=== PATIENT | female | born 2000 | race Caucasian/White ===

== ENCOUNTER 2021-10-04 23:07 | Emergency (ER) | payer OTHER, SELFPAY ==
[2021-10-04 23:37] VITALS: BP 125/71; PULSE 88; RESP 18; TEMP 36.3; O2SAT 99; BMI 22.1
[2021-10-05] MEDS: Ondansetron ODT 4 MG TAB.RAPDIS TRANSLINGU (00:03)
[2021-10-05] MEDS: Lidocaine HCl Viscous 2 % 15 ML SOLUTION MUCOUS MEM (00:29)
[2021-10-05] MEDS: PHENobarb/Hyoscy/Atropine/Scop 10 ML ELIXIR PO (00:29)
[2021-10-05] MEDS: Magnesium Hydrox/Alum Hydrox 30 ML ORAL.SUSP PO (00:30)
--- NOTE | 2021-10-05 00:42 | ED_ITS ---
HPI - Nausea/Vomiting/Diarrhea General Chief complaint: Nausea/Vomiting/Diarrhea Stated complaint: Vomiting Time Seen by Provider: 10/04/21 23:55 Source: patient Mode of arrival: ambulatory Limitations: no limitations History of Present Illness HPI Narrative: Patient states yesterday she was drinking alcohol from 16:00 until 23:00 when she woke up at midnight she started vomiting and mild abdominal discomfort. Patient states she drank 1 and 1/2 bottle of Yannick alcohol. Patient states she did not eat any food while drinking. Associated nausea: Yes Related Data Previous Rx's Medication Instructions Recorded famotidine 20 mg tablet (Pepcid) 20 mg PO BID 10 Days #20 tab 10/05/21 Allergies Allergy/AdvReac Type Severity Reaction Status Date / Time No Known Allergies Allergy Verified 10/04/21 23:56 Review of Systems Review of Systems: Yes all other systems are reviewed and are negative Constitutional: Constitutional: Reports as per HPI and Reports no additional constitutional complaints Eyes: Eyes: Reports as per HPI and Reports no additional eye complaints ENT: Reports system reviewed and no additional complaints, except as documented and Reports as per HPI Cardiovascular: Cardiovascular: Reports as per HPI and Reports no additional cardiovascular complaints Respiratory: Respiratory: Reports as per HPI and Reports no additional respiratory complaints Gastrointestinal: Gastrointestinal: Reports as per HPI, Reports no additional gastrointestinal complaints, Reports abdominal pain (epigastric pain) and Reports nausea Musculoskeletal: Musculoskeletal: Reports no additional musculoskeletal complaints and Reports as per HPI Neurologic: Reports system reviewed and no additional complaints, except as documented and Reports as per HPI Psychiatric: Psychiatric: Reports no additional psychiatric complaints and Reports as per HPI FOR[facility]LY [facility], [facility] Past Medical History Medical History (Updated 10/05/21 @ 00:55 by CHANDRA Castañeda) Graves disease Social History Social History Advance Directives: No Patient : No Physical Exam Vital Signs: Vital Signs: Last Vital Signs Temp 97.4 F 10/04/21 23:37 Pulse 88 10/04/21 23:37 Resp 18 10/04/21 23:37 BP 125/71 10/04/21 23:37 Pulse Ox 99 10/04/21 23:37 Body Mass Index 22.1 Const: General: cooperative, healthy appearing, comfortable, no acute distress, well developed, alert, awake and Physically active Orientation/consciousness: patient oriented x3 HENMT: Head: Yes normal to inspection, Yes No palpable skull fracture present, Yes normocephalic, Yes atraumatic and No abrasion Eyes: General: appearance normal, both eyes and all related structures Neck: Neck: Yes normal visual inspection, Yes full ROM, Yes no lymphadenopathy, Yes no meningeal signs, Yes trachea midline, Yes supple and No tender Chest: Chest palpation & inspection: normal inspection of the chest and normal palpation of entire chest wall Resp: Effort & Inspection: normal respiratory effort and able to speak in complete sentences Auscultation: clear to auscultation bilaterally Cardio: Jugular venous distension: no JVD Heart sounds: S1 normal heart sound present and S2 normal heart sound present GI: Inspection: Yes normal to inspection and No abdominal wall ecchymosis Palpation (GI): Soft to palpation, not firm, nontender, no guarding and not rigid : General: No CVA tenderness and Yes no CVA tenderness Back/Spine/Pelvis: Back: no CVA tenderness, No CVA tenderness and No back tenderness Skin: General skin exam: no rashes or lesions noted and elasticity normal Neuro: General: patient oriented x3, gait normal, no meningeal signs and CN's II-XI intact bilaterally Cranial nerves: Yes CN's II-XII intact bilaterally Extrem: General: Yes normal to inspection and Yes full ROM Psych: Appearance: grossly normal, well kempt and not disheveled Course Course Course Narrative: Give Zofran and p.o. challenge. Reevaluation(s) Reevaluation #1: Patient no longer vomiting. After Zofran and GI cocktail patient states she feel better. Patient talking and laughing with female friend. Patient passed p.o. challenge. Diagnosis alcohol gastritis. Patient states no need to give urine for . She states she is a lesbian. Time: 00:51 MDM - Nausea/Vomiting/Diarrhea MDM Narrative Medical decision making narrative: Alcoholic Gastritis Discharge Plan Discharge Clinical Impression: Acute alcoholic gastritis Patient Disposition: Home, Self-Care Instructions: Gastritis (ED) Additional Instructions: Return to the ED immediately for any vomiting blood, abdominal pain, blood in stool, fever, chills, right upper quadrant pain, green emesis, dysuria, hematuria, flank pain, or any other concerning symptoms. Please follow up with PCP Prescriptions: New famotidine [Pepcid] 20 mg tablet 20 mg PO BID 10 Days Qty: 20 RF: 0 Interventions: ED Discharge Assessment Last Done: 10/05/21 01:04 Discharge Date/Time: 10/05/21 01:08 EST Print Language: Mohawk
--- NOTE | 2021-10-05 01:08 | PC.NURSE ---
PT HAS NOT VOMITED SINCE ZOFRAN GIVEN AND GI COCKTAIL GIVEN PT STATES SHE FEEL BETTER.
== END 2021-10-05 01:08 | disposition home or self-care (01) ==
PROVIDERS: Emergency Provider Internal Medicine
DX: K29.20 Alcoholic gastritis without bleeding (principal); R11.2 Nausea with vomiting, unspecified; Z79.899 Other long term (current) drug therapy
CPT/HCPCS: 99283

== ENCOUNTER 2021-12-18 12:14 | Outpatient (REF) | payer OTHER, SELFPAY ==
[2021-12-18 12:27] LABS: COVID-19 Test Positive (Negative)
== END 2021-12-18 12:15 | disposition home or self-care (01) ==
LOC: HO.LAB 12:14
PROVIDERS: Visit Provider Internal Medicine
DX: Z20.822 Contact with and (suspected) exposure to COVID-19 (principal)
CPT/HCPCS: 87635; C9803

== ENCOUNTER 2022-06-09 00:18 | Emergency (ER) | payer OTHER, SELFPAY ==
[2022-06-09 00:24] VITALS: BP 110/70; PULSE 90; O2SAT 99
[2022-06-09 00:49] VITALS: BP 116/77; PULSE 58; RESP 18; TEMP 37; O2SAT 97; BMI 23.0
[2022-06-09 00:59] LABS: Basophils Percent Auto 0.3 % (0-2); Eosinophils Absolute Auto 0.1 X10*3/uL (0.0-0.4); Eosinophils Percent Auto 0.4 % (0-4); Hematocrit 42.8 % (37.0-47.0); Hemoglobin 14.2 g/dl (12.0-16.0); Imm Gran Abs Auto 0.06 X10*3/uL (0.00-0.03); Imm Gran Pct Auto 0.4 % (0.0-0.4); Lymphocytes Absolute Auto 0.8 X10*3/uL (1.2-4.9); Lymphocytes Percent Auto 5.1 % (20-40); MANUAL DIFF FLAG NO; Mean Corpuscular HGB Conc 33.2 g/dl (31.0-35.0); Mean Corpuscular Hemoglobin 32.8 pg (27.0-33.0); Mean Corpuscular Volume 98.8 fL (80.0-98.0); Mean Platelet Volume 9.5 fL (9.4-12.3); Monocytes Absolute Auto 0.8 X10*3/uL (0.1-1.2); Monocytes Percent Auto 5.1 % (2-11); Neutrophils Absolute Auto 13.5 x10*3/uL (2.0-8.3); Neutrophils Percent Auto 88.7 % (45-73); Platelet Count 208 X10*3/uL (160-400); Red Blood Count 4.33 X10*6/uL (4.20-5.50); Red Cell Distribution Width 13.3 % (11.0-16.0); White Blood Count 15.3 X10*3/uL (4.8-10.8)
[2022-06-09 06:03] LABS: Alanine Aminotransferase 46 U/L (0-31); Alkaline Phosphatase 58 U/L (39-117); Anion Gap 15 (12-20); Aspartate Amino Transferase 40 U/L (5-31); Bilirubin Direct 0.4 mg/dL (0.0-0.5); Blood Urea Nitrogen 18 mg/dL (9-16); Calcium 9.2 mg/dL (8.4-10.2); Carbon Dioxide 22 mmol/L (22-29); Chloride 103 mmol/L (96-108); Creatinine Clr Calc Pharmacy 85.6; Estimated Glomerular Filt Rate > 60; Glucose Random 104 mg/dL (60-115); Lipase 16 U/L (8-78); Sodium 136 mmol/L (135-145); Total Protein 8.4 g/dL (6.5-8.0)
[2022-06-09 06:17] VITALS: BP 127/74; PULSE 98; RESP 16; O2SAT 99
--- NOTE | 2022-06-09 06:27 | ED.NAVMDI ---
HPI - Nausea/Vomiting/Diarrhea General Chief complaint: Nausea/Vomiting/Diarrhea Stated complaint: SUDDEN ONSET NAUSEA/VOMITING PER EMS Time Seen by Provider: 06/09/22 06:27 Source: patient Mode of arrival: ambulatory Limitations: no limitations History of Present Illness HPI Narrative: Patient with Nausea and vomiting for the past 6 hours. Patient denied food poisoning. MD elicited complaint: nausea, vomiting and diarrhea Onset (ago): hour(s) Associated nausea: Yes Associated abdominal pain: Yes Location of pain: none Severity: mild Quality: cramping Associated symptoms: fever/chills Treatment prior to arrival: none Related Data Previous Rx's Medication Instructions Recorded famotidine 20 mg tablet (Pepcid) 20 mg PO BID 10 days #20 tabs 10/05/21 ondansetron 4 mg disintegrating 4 mg PO Q8H 4 days #12 tabs 06/09/22 tablet Allergies Allergy/AdvReac Type Severity Reaction Status Date / Time No Known Allergies Allergy Verified 10/04/21 23:56 Review of Systems Constitutional: Constitutional: Reports no additional constitutional complaints Eyes: Eyes: Reports no additional eye complaints ENT: Denies dizziness Cardiovascular: Cardiovascular: Reports no additional cardiovascular complaints Respiratory: Respiratory: Reports as per HPI Gastrointestinal: Gastrointestinal: Reports nausea Genitourinary: Genitourinary: Reports no additional female genitourinary complaints Musculoskeletal: Musculoskeletal: Reports no additional musculoskeletal complaints Integumentary/Breasts: Skin/Breast: Denies rash Neurologic: Reports system reviewed and no additional complaints, except as documented, Denies dizziness and Denies Sensory deficit (Neuro) Psychiatric: Psychiatric: Denies anxiety [facility] Past Medical History Medical History Graves disease Social History Social History Advance Directives: No Advance Directives Information Provided: Yes Physical Exam Vital Signs: Vital Signs: Last Vital Signs Temp 98.6 F 06/09/22 00:49 Pulse 87 06/09/22 08:22 Resp 16 06/09/22 08:22 BP 119/77 06/09/22 08:22 Pulse Ox 99 06/09/22 08:22 O2 Del Method 06/09/22 08:22 BMI result Body Mass Index 23.0 Const: General: healthy appearing Nutritional Appearance: average body habitus Orientation/consciousness: oriented to person and patient oriented x3 Limitations: no limitations HEENT: Head: Yes normal to inspection Ears: external ears normal General nose exam: Normal external nose present Mouth: Normal oral and palatal mucosa present and oropharynx normal Throat: Yes posterior oropharynx normal Eyes: General: appearance normal, both eyes and all related structures Neck: Other: supple Neck: Yes normal visual inspection Chest: Chest palpation & inspection: normal inspection of the chest Resp: Auscultation: clear to auscultation bilaterally Cardio: Jugular venous distension: no JVD Rate: regular rate Rhythm: regular rhythm Heart sounds: S1 normal heart sound present and S2 normal heart sound present GI: Inspection: Yes normal to inspection Palpation (GI): Soft to palpation, nontender and No hepatosplenomegaly present Auscultation: normal bowel sounds : General: Yes no CVA tenderness Back/Spine/Pelvis: Back: no CVA tenderness Skin: General skin exam: no rashes or lesions noted Neuro: General: oriented to person and patient oriented x3 Cranial nerves: Yes CN's II-XII intact bilaterally Motor exam (neuro): 5/5 motor strength present throughout Sensory Exam: No Sensory deficit (Neuro) Extrem: General: Yes normal to inspection Psych: Appearance: grossly normal Course Reevaluation(s) Reevaluation #1: patient looking well, abdomen soft will dc on zofran Time: 08:56 MDM - Nausea/Vomiting/Diarrhea Lab Data Result diagrams: 06/09/22 00:53 06/09/22 05:35 Labs: Lab Results 06/09/22 06/09/22 Range/Units 00:53 05:35 WBC 15.3 H (4.8-10.8) X10*3/uL RBC 4.33 (4.20-5.50) X10*6/uL Hgb 14.2 (12.0-16.0) g/dl Hct 42.8 (37.0-47.0) % MCV 98.8 H (80.0-98.0) fL MCH 32.8 (27.0-33.0) pg MCHC 33.2 (31.0-35.0) g/dl RDW 13.3 (11.0-16.0) % Plt Count 208 (160-400) X10*3/uL MPV 9.5 (9.4-12.3) fL Immature Gran % (Auto) 0.4 (0.0-0.4) % Neut % (Auto) 88.7 H (45-73) % Lymph % (Auto) 5.1 L (20-40) % Maverick % (Auto) 5.1 (2-11) % Eos % (Auto) 0.4 (0-4) % Baso % (Auto) 0.3 (0-2) % Lymph # (Auto) 0.8 L (1.2-4.9) X10*3/uL [place]ick # (Auto) 0.8 (0.1-1.2) X10*3/uL Eos # (Auto) 0.1 (0.0-0.4) X10*3/uL Baso # (Auto) 0.0 (0.0-0.2) X10*3/uL Abs Immat Gran (auto) 0.06 H (0.00-0.03) X10*3/uL Absolute Neuts (auto) 13.5 H (2.0-8.3) x10*3/uL Absolute Nucleated RBC 0.000 (0.0-0.012) X10*3/uL Nucleated RBC % (auto) 0.0 (0.0-0.2) /100WBC Sodium 136 (135-145) mmol/L Potassium 4.0 (3.3-5.1) mmol/L Chloride 103 (96-108) mmol/L Carbon Dioxide 22 (22-29) mmol/L Anion Gap 15 (12-20) BUN 18 H (9-16) mg/dL Creatinine 0.86 (0.5-1.4) mg/dL Estim Creat Clear Calc 85.6 Estimated GFR > 60 Random Glucose 104 (60-115) mg/dL Calcium 9.2 (8.4-10.2) mg/dL Total Bilirubin 1.0 (0.0-1.0) mg/dL Direct Bilirubin 0.4 (0.0-0.5) mg/dL AST 40 H (5-31) U/L ALT 46 H (0-31) U/L Alkaline Phosphatase 58 (39-117) U/L Total Protein 8.4 H (6.5-8.0) g/dL Albumin 5.0 (3.5-5.0) g/dL Lipase 16 (8-78) U/L Discharge Plan Discharge Clinical Impression: Gastroenteritis Patient Disposition: Home, Self-Care Instructions: Acute Nausea and Vomiting (ED) Prescriptions: New ondansetron 4 mg tablet,disintegrating 4 mg PO Q8H 4 Days Qty: 12 0RF No Action famotidine [Pepcid] 20 mg tablet 20 mg PO BID 10 Days Qty: 20 0RF Referrals: Santa Iqbal PA-C [Primary Care Provider] - 1 week
[2022-06-09] MEDS: ondansetron HCL 4 MG/2 ML VIAL IVPUSH (06:32)
[2022-06-09] MEDS: 0.9 % Sodium Chloride 1,000 ML 999 ML IVCONT (06:33)
[2022-06-09 08:22] VITALS: BP 119/77; PULSE 87; RESP 16; O2SAT 99
[2022-06-09 09:41] VITALS: BP 125/66; PULSE 95; RESP 18; TEMP 37; O2SAT 98
== END 2022-06-09 09:52 | disposition home or self-care (01) ==
PROVIDERS: Emergency Provider Emergency Medicine; PCP Physician Assistant
DX: K52.9 Noninfective gastroenteritis and colitis, unspecified (principal); R11.2 Nausea with vomiting, unspecified; R50.9 Fever, unspecified; Z20.822 Contact with and (suspected) exposure to COVID-19; Z79.899 Other long term (current) drug therapy
CPT/HCPCS: 36415; 80053; 82248; 83690; 85025; 96361; 96374; 99284; J2405

== ENCOUNTER 2022-06-10 11:45 | Emergency (ER) | payer OTHER, SELFPAY ==
--- NOTE | 2022-06-10 | ECG_ITS ---
Test Reason : cp Blood Pressure : / mmHG Vent. Rate : 092 BPM Atrial Rate : 092 BPM P-R Int : 174 ms QRS Dur : 078 ms QT Int : 356 ms P-R-T Axes : 041 048 013 degrees QTc Int : 440 ms Normal sinus rhythm Normal ECG When compared with ECG of 24-JUN-2019 21:24, Nonspecific T wave abnormality no longer evident in Anterior leads Referred By: Generic ED Physician Electronically Signed By:CRISTOPHER GANNON MD
--- NOTE | ~2022-06-10 | XR_ITS ---
EXAMINATION: XR CHEST CLINICAL INFORMATION: Chest pain COMPARISON: Chest x-ray 11/25/2017 TECHNIQUE: Frontal view of the chest was obtained. FINDINGS: The lungs are clear. No airspace consolidation, pleural effusion, or pneumothorax. The cardiomediastinal silhouette is within normal limits. No acute osseous injury. XR/XR chest 1V IMPRESSION: No acute pulmonary process.
[2022-06-10 11:53] VITALS: BP 138/61; PULSE 88; RESP 16; TEMP 36.1; O2SAT 99; BMI 23.9
[2022-06-10 14:44] LABS: MANUAL DIFF FLAG NO
[2022-06-10 14:45] LABS: Basophils Percent Auto 0.1 % (0-2); Eosinophils Absolute Auto 0.1 X10*3/uL (0.0-0.4); Eosinophils Percent Auto 1.3 % (0-4); Hematocrit 40.1 % (37.0-47.0); Hemoglobin 13.6 g/dl (12.0-16.0); Imm Gran Abs Auto 0.02 X10*3/uL (0.00-0.03); Imm Gran Pct Auto 0.3 % (0.0-0.4); Lymphocytes Absolute Auto 1.5 X10*3/uL (1.2-4.9); Lymphocytes Percent Auto 21.6 % (20-40); Mean Corpuscular HGB Conc 33.9 g/dl (31.0-35.0); Mean Corpuscular Hemoglobin 32.5 pg (27.0-33.0); Mean Corpuscular Volume 95.7 fL (80.0-98.0); Mean Platelet Volume 9.1 fL (9.4-12.3); Monocytes Absolute Auto 0.5 X10*3/uL (0.1-1.2); Monocytes Percent Auto 6.5 % (2-11); Neutrophils Absolute Auto 4.9 x10*3/uL (2.0-8.3); Neutrophils Percent Auto 70.2 % (45-73); Platelet Count 214 X10*3/uL (160-400); Red Blood Count 4.19 X10*6/uL (4.20-5.50); Red Cell Distribution Width 13.5 % (11.0-16.0)
[2022-06-10 15:07] LABS: Alanine Aminotransferase 32 U/L (0-31); Albumin Level 4.7 g/dL (3.5-5.0); Alkaline Phosphatase 54 U/L (39-117); Anion Gap 12 (12-20); Aspartate Amino Transferase 34 U/L (5-31); Bilirubin Direct 0.2 mg/dL (0.0-0.5); Bilirubin Total 0.4 mg/dL (0.0-1.0); Blood Urea Nitrogen 7 mg/dL (9-16); Calcium 8.4 mg/dL (8.4-10.2); Carbon Dioxide 26 mmol/L (22-29); Chloride 104 mmol/L (96-108); Creatinine Clr Calc Pharmacy 85.6; Estimated Glomerular Filt Rate > 60; Glucose Random 88 mg/dL (60-115); Lipase 12 U/L (8-78); Potassium 3.9 mmol/L (3.3-5.1); Sodium 138 mmol/L (135-145)
[2022-06-10 15:10] LABS: HCG Quantitative < 2 mIU/mL
[2022-06-10 16:37] VITALS: BP 125/89; PULSE 94; RESP 16; TEMP 36.6; O2SAT 99
--- NOTE | 2022-06-10 16:43 | ED.GENADULT ---
HPI - General Adult General Chief complaint: General Medical Stated complaint: Chest pain Time Seen by Provider: 06/10/22 13:58 Source: patient Mode of arrival: ambulatory History of Present Illness HPI narrative: 22-year-old female without significant past medical history presents with left anterior chest wall pain that started last night approximately 17:00 and she states it was preceded by multiple episodes of nausea and vomiting for which she was seen here yesterday. Patient states that the pain radiates into her back and is associated with nausea, sweating, dizziness when she coughs. Patient is a nonsmoker denies OCP recent travel. Reproducible pain on palpation over left chest wall Related Data Previous Rx's Medication Instructions Recorded famotidine 20 mg tablet (Pepcid) 20 mg PO BID 10 days #20 tabs 10/05/21 ondansetron 4 mg disintegrating 4 mg PO Q8H 4 days #12 tabs 06/09/22 tablet Allergies Allergy/AdvReac Type Severity Reaction Status Date / Time No Known Allergies Allergy Verified 10/04/21 23:56 Review of Systems Review of Systems: Pertinent positives and negatives as stated in HPI and 10 point review of systems is otherwise negative. PMFSH Past Medical History Source: nursing notes reviewed Medical History Graves disease Social History Social History Alcohol intake: current Patient Tobacco Use Status: Current someday Tobacco user Substance Use Type: Marijuana Advance Directives: No Advance Directives Information Provided: Yes Patient : No Physical Exam ED Vital Signs: Vital Signs - 24 hr 06/10/22 11:53 06/10/22 16:37 Temperature 97 F 97.9 F Pulse Rate 88 94 Respiratory Rate 16 16 Blood Pressure 138/61 125/89 Pulse Oximetry 99 99 Oxygen Delivery Method Room Air Room Air BMI result Body Mass Index 23.9 VITAL SIGNS: Reviewed. GENERAL: Well developed, well nourished, in no acute distress. HEAD: Normocephalic/atraumatic EYES: PERRLA, EOMI EARS: Ext canals without abnormality OROPHARYNX: no oral lesions noted, posterior pharynx clear LUNGS: Normal breath sounds. No adventitious sounds or accessory muscle use. SpO2<99>; CHEST WALL: Reproducible chest wall pain on palpation over left superior anterior chest wall without crepitus or deformity noted. CARDIOVASCULAR: Regular rate and rhythm without noted murmurs ABDOMEN: Soft, non-tender, non-distended with bowel sounds. NEUROLOGIC: Alert and oriented x 4. Strength and sensation to light touch were grossly intact x 4. Course Course Course Narrative: 22-year-old female with history and clinical presentation consistent with anterior chest wall muscle strain, costochondritis and doubt significant cardiopulmonary etiologies and patient is PERC negative. Review of all investigations are otherwise negative for acute findings and on re-evaluation patient reports improvement with the combination analgesics and lidocaine patch. She was otherwise discharged home in stable condition. Medical Decision Making Lab Data Result diagrams: 06/10/22 14:40 06/10/22 14:40 Labs: Lab Results 06/10/22 06/10/22 06/10/22 Range/Units 14:40 14:40 14:40 WBC 7.0 (4.8-10.8) X10*3/uL RBC 4.19 L (4.20-5.50) X10*6/uL Hgb 13.6 (12.0-16.0) g/dl Hct 40.1 (37.0-47.0) % MCV 95.7 (80.0-98.0) fL MCH 32.5 (27.0-33.0) pg MCHC 33.9 (31.0-35.0) g/dl RDW 13.5 (11.0-16.0) % Plt Count 214 (160-400) X10*3/uL MPV 9.1 L (9.4-12.3) fL Immature Gran % (Auto) 0.3 (0.0-0.4) % Neut % (Auto) 70.2 (45-73) % Lymph % (Auto) 21.6 (20-40) % [place] % (Auto) 6.5 (2-11) % Eos % (Auto) 1.3 (0-4) % Baso % (Auto) 0.1 (0-2) % Lymph # (Auto) 1.5 (1.2-4.9) X10*3/uL [place] # (Auto) 0.5 (0.1-1.2) X10*3/uL Eos # (Auto) 0.1 (0.0-0.4) X10*3/uL Baso # (Auto) 0.0 (0.0-0.2) X10*3/uL Abs Immat Gran (auto) 0.02 (0.00-0.03) X10*3/uL Absolute Neuts (auto) 4.9 (2.0-8.3) x10*3/uL Absolute Nucleated RBC 0.000 (0.0-0.012) X10*3/uL Nucleated RBC % (auto) 0.0 (0.0-0.2) /100WBC Sodium 138 (135-145) mmol/L Potassium 3.9 (3.3-5.1) mmol/L Chloride 104 (96-108) mmol/L Carbon Dioxide 26 (22-29) mmol/L Anion Gap 12 (12-20) BUN 7 L D (9-16) mg/dL Creatinine 0.86 (0.5-1.4) mg/dL Estim Creat Clear Calc 85.6 Estimated GFR > 60 Random Glucose 88 (60-115) mg/dL Calcium 8.4 D (8.4-10.2) mg/dL Total Bilirubin 0.4 (0.0-1.0) mg/dL Direct Bilirubin 0.2 (0.0-0.5) mg/dL AST 34 H (5-31) U/L ALT 32 H (0-31) U/L Alkaline Phosphatase 54 (39-117) U/L Troponin I High Sens (<3.5-17.0) ng/L Total Protein 8.0 (6.5-8.0) g/dL Albumin 4.7 (3.5-5.0) g/dL Lipase 12 (8-78) U/L Beta HCG, Quant < 2 mIU/mL COVID-19 ([facility]IZABETH) (Negative) COVID-19 Clin Com 06/10/22 06/10/22 Range/Units 14:40 17:03 WBC (4.8-10.8) X10*3/uL RBC (4.20-5.50) X10*6/uL Hgb (12.0-16.0) g/dl Hct (37.0-47.0) % MCV (80.0-98.0) fL MCH (27.0-33.0) pg MCHC (31.0-35.0) g/dl RDW (11.0-16.0) % Plt Count (160-400) X10*3/uL MPV (9.4-12.3) fL Immature Gran % (Auto) (0.0-0.4) % Neut % (Auto) (45-73) % Lymph % (Auto) (20-40) % [place] % (Auto) (2-11) % Eos % (Auto) (0-4) % Baso % (Auto) (0-2) % Lymph # (Auto) (1.2-4.9) X10*3/uL [place] # (Auto) (0.1-1.2) X10*3/uL Eos # (Auto) (0.0-0.4) X10*3/uL Baso # (Auto) (0.0-0.2) X10*3/uL Abs Immat Gran (auto) (0.00-0.03) X10*3/uL Absolute Neuts (auto) (2.0-8.3) x10*3/uL Absolute Nucleated RBC (0.0-0.012) X10*3/uL Nucleated RBC % (auto) (0.0-0.2) /100WBC Sodium (135-145) mmol/L Potassium (3.3-5.1) mmol/L Chloride (96-108) mmol/L Carbon Dioxide (22-29) mmol/L Anion Gap (12-20) BUN (9-16) mg/dL Creatinine (0.5-1.4) mg/dL Estim Creat Clear Calc Estimated GFR Random Glucose (60-115) mg/dL Calcium (8.4-10.2) mg/dL Total Bilirubin (0.0-1.0) mg/dL Direct Bilirubin (0.0-0.5) mg/dL AST (5-31) U/L ALT (0-31) U/L Alkaline Phosphatase (39-117) U/L Troponin I High Sens < 3.5 (<3.5-17.0) ng/L Total Protein (6.5-8.0) g/dL Albumin (3.5-5.0) g/dL Lipase (8-78) U/L Beta HCG, Quant mIU/mL COVID-19 ([facility]ABETH) Negative (Negative) COVID-19 Clin Com See Note ECG Data Attestation: I personally reviewed and interpreted this ECG as follows: Prior ECG tracings: available for review Interpretation: Normal sinus rhythm, HR-92, no STEMI, AR/QRS/QTC are within normal limits. Discharge Plan Discharge Clinical Impression: Anterior chest wall pain, Atypical chest pain, Muscle strain of chest wall Patient Disposition: Home, Self-Care Instructions: Chest Wall Pain (ED), Muscle Strain (ED) Additional Instructions: 1. Tylenol 1000 mg, orally, every 6 hours as needed for pain control. Do not exceed 4000 mg within 24 hours. 2. Ibuprofen 400 mg, orally with milk or food, every 6 hours as needed for pain control. You can take this with the Tylenol for improved symptom relief. 3. Lidocaine patch, apply to area of maximal tenderness as directed on the outside packaging. 4. Follow-up with your primary care provider next 2-3 days for re-evaluation. Return to the ER for worsening symptoms. Prescriptions: No Action famotidine [Pepcid] 20 mg tablet 20 mg PO BID 10 Days Qty: 20 0RF ondansetron 4 mg tablet,disintegrating 4 mg PO Q8H 4 Days Qty: 12 0RF
[2022-06-10] MEDS: Acetaminophen 325 MG TABLET 975 MG PO (17:06)
[2022-06-10] MEDS: Ketorolac Tromethamine 15 MG/ML VIAL IM (17:06)
[2022-06-10] MEDS: Lidocaine 4 % Patch ADH..PATCH 1 PATCH TRANSDERMA (17:09)
[2022-06-10 17:40] LABS: COVID-19 Test Negative (Negative)
[2022-06-10 18:11] LABS: Troponin-I High Sensitivity < 3.5 ng/L (<3.5-17.0)
== END 2022-06-10 18:36 | disposition home or self-care (01) ==
PROVIDERS: Emergency Medicine; Emergency Provider Student in an Organized Health Care Education/Training Program
DX: R07.89 Other chest pain (principal); S29.011A Strain of muscle and tendon of front wall of thorax, initial encounter; X58.XXXA Exposure to other specified factors, initial encounter; F17.200 Nicotine dependence, unspecified, uncomplicated; F12.90 Cannabis use, unspecified, uncomplicated; Z20.822 Contact with and (suspected) exposure to COVID-19; Y93.9 Activity, unspecified; Y92.032 Bedroom in apartment as the place of occurrence of the external cause; Y99.9 Unspecified external cause status
CPT/HCPCS: 36415; 71045; 80048; 80076; 83690; 84484; 84702; 85025; 87635; 93005; 96372; 99284; J1885

== ENCOUNTER 2022-10-18 18:04 | Emergency (ER) | payer OTHER, SELFPAY ==
--- NOTE | ~2022-10-18 | CT_ITS ---
EXAMINATION: NONCONTRAST HEAD CT NONCONTRAST CERVICAL SPINE CT INDICATION INFORMATION: Fall at work with head strike COMPARISON: Head CT 06/24/2019 TECHNIQUE: Separate noncontrast CT examinations of the head and cervical spine were performed. Coronal and sagittal images were created for each examination at the technologist workstation. This CT examination was performed using dose optimization techniques as appropriate, variously including the following: *Automated exposure control *Adjustment of mA and/or kV according to patient size (this includes techniques or standardized protocols for targeted exams where dose is matched to indication/reason for exam; i.e. extremities or head) *Use of iterative reconstruction technique DLP: 1039 mGy-cm FINDINGS: HEAD: No intra or extra-axial fluid collection, hemorrhage, or mass. No ventriculomegaly. No midline shift or herniation. Basal cisterns are patent. Bee-white matter differentiation is maintained. No territorial encephalomalacia. No significant volume loss. There is no abnormal attenuation within the brain parenchyma. No calvarial fracture or soft tissue abnormality. The mastoid air cells and visualized portions of the paranasal sinuses are well aerated. CERVICAL SPINE: Alignment: Normal. No subluxation. Vertebra: No acute fracture. No prevertebral soft tissue swelling. Degenerative disc disease: No significant. Preserved intervertebral disc heights. Other findings: Visualized lung apices are clear. Status post thyroidectomy with numerous surgical clips in place. No cervical lymphadenopathy by size criteria. A few punctate calcifications in the parotid glands noted bilaterally. CT/CT head/brain wo IV con IMPRESSION: 1. No intracranial hemorrhage or calvarial fracture. 2. No traumatic subluxation or acute cervical spine fracture.
--- NOTE | ~2022-10-18 | XR_ITS ---
EXAMINATION: XR lumbar spine 2-3V, XR thoracic spine 3V CLINICAL INFORMATION: Reason for Exam pain s/p fall COMPARISON: None. TECHNIQUE: AP, lateral, swimmer's lateral thoracic spine; 3 views lumbosacral spine FINDINGS: Thoracic spine: Normal alignment of the thoracic spine. Vertebral body heights are maintained. No fracture. Intervertebral disc space heights are preserved. No osseous lesion identified. Visualized portion of lungs are grossly clear. Surgical clips project over the lower neck. Correlate with prior thyroidectomy or other surgery. Lumbar spine: Normal alignment of the lumbar spine. Vertebral body heights are maintained. No fracture. Intervertebral disc space heights are preserved. No pars defects. No osseous lesion. SI joints appear congruent and intact. XR/XR lumbar spine 2-3V IMPRESSION: 1. No subluxation or fracture identified in the thoracic or lumbar spine. 2. Preserved intervertebral disc space heights.
--- NOTE | ~2022-10-18 | CT_ITS ---
EXAMINATION: NONCONTRAST HEAD CT NONCONTRAST CERVICAL SPINE CT INDICATION INFORMATION: Fall at work with head strike COMPARISON: Head CT 06/24/2019 TECHNIQUE: Separate noncontrast CT examinations of the head and cervical spine were performed. Coronal and sagittal images were created for each examination at the technologist workstation. This CT examination was performed using dose optimization techniques as appropriate, variously including the following: *Automated exposure control *Adjustment of mA and/or kV according to patient size (this includes techniques or standardized protocols for targeted exams where dose is matched to indication/reason for exam; i.e. extremities or head) *Use of iterative reconstruction technique DLP: 1039 mGy-cm FINDINGS: HEAD: No intra or extra-axial fluid collection, hemorrhage, or mass. No ventriculomegaly. No midline shift or herniation. Basal cisterns are patent. Bee-white matter differentiation is maintained. No territorial encephalomalacia. No significant volume loss. There is no abnormal attenuation within the brain parenchyma. No calvarial fracture or soft tissue abnormality. The mastoid air cells and visualized portions of the paranasal sinuses are well aerated. CERVICAL SPINE: Alignment: Normal. No subluxation. Vertebra: No acute fracture. No prevertebral soft tissue swelling. Degenerative disc disease: No significant. Preserved intervertebral disc heights. Other findings: Visualized lung apices are clear. Status post thyroidectomy with numerous surgical clips in place. No cervical lymphadenopathy by size criteria. A few punctate calcifications in the parotid glands noted bilaterally. CT/CT cervical spine wo IV con IMPRESSION: 1. No intracranial hemorrhage or calvarial fracture. 2. No traumatic subluxation or acute cervical spine fracture.
--- NOTE | ~2022-10-18 | XR_ITS ---
EXAMINATION: XR lumbar spine 2-3V, XR thoracic spine 3V CLINICAL INFORMATION: Reason for Exam pain s/p fall COMPARISON: None. TECHNIQUE: AP, lateral, swimmer's lateral thoracic spine; 3 views lumbosacral spine FINDINGS: Thoracic spine: Normal alignment of the thoracic spine. Vertebral body heights are maintained. No fracture. Intervertebral disc space heights are preserved. No osseous lesion identified. Visualized portion of lungs are grossly clear. Surgical clips project over the lower neck. Correlate with prior thyroidectomy or other surgery. Lumbar spine: Normal alignment of the lumbar spine. Vertebral body heights are maintained. No fracture. Intervertebral disc space heights are preserved. No pars defects. No osseous lesion. SI joints appear congruent and intact. XR/XR thoracic spine 3V IMPRESSION: 1. No subluxation or fracture identified in the thoracic or lumbar spine. 2. Preserved intervertebral disc space heights.
[2022-10-18 18:18] VITALS: BP 129/77; PULSE 87; RESP 18; TEMP 36.7; O2SAT 99; BMI 23.9
[2022-10-18 18:45] LABS: UPreg QC Valid YES; Urine Pregnancy NEGATIVE (NEGATIVE)
--- OUTSIDE RECORDS SUMMARY | 2022-10-18 19:07 | XMS_ITS | Continuity of Care Document ---
:2001 Author Organization [facility] Address [address] [place] [id number]- Care Team Providers Name Role Phone Evelyn Chun DO Primary Care Physician Encounter [facility] Date(s): 12/31/21 - 01/30/22 [facility] [address] [place] [id number]- Attending Physician: Jamal Torres Admitting Physician: Jamal Torres Referring Physician: AdmtrJamal Allergies, Adverse Reactions, Alerts No Known Allergies Medications levothyroxine 175 mcg (0.175 mg) oral tablet 1 tablet, By Mouth, Daily, # 30 tablet, 0 Refills, Maintenance, 12/26/21 15:39:00 EST, [facility]/pharmacy #[id number] Start Date: 12/26/21 Status: Ordered Problem List Condition Effective Dates Status Health Status Informant Acquired hypothyroidism(Confirmed) Active Graves' disease(Confirmed) Active Impaired fasting glucose(Confirmed) Active Social History Social History Type Response Smoking Status Never smoker entered on: 01/13/18 Sex
--- OUTSIDE RECORDS SUMMARY | 2022-10-18 19:07 | XMS_ITS | Continuity of Care Document ---
:2001 Author Organization [facility] Address [address] [place] [address]- Care Team Providers Name Role Phone Evelyn Chun DO Primary Care Physician [place] [facility] [place] 01/02/21 - 02/26/21 [facility] [address] [place] [id number]- Attending Physician: Rebecca Reese MD Admitting Physician: Rebecca Reese MD Allergies, Adverse Reactions, Alerts Substance Reaction Severity Status NKA Active Medications levothyroxine 175 mcg (0.175 mg) oral tablet 1 tablet, By Mouth, Daily, # 30 tablet, 10 Refills, Maintenance, 12/26/20 14:48:00 EST, [id number], 159, cm, 05/10/19 11:27:00 EDT, Height, 54.5, kg, 05/10/19 11:27:00 EDT, Dry Weight Start Date: 12/26/20 Status: Ordered Problem List Condition Effective Dates Status Health Status Informant Acquired hypothyroidism(Confirmed) Active Graves' disease(Confirmed) Active Impaired fasting glucose(Confirmed) Active Social History Social History Type Response Smoking Status Never smoker entered on: 01/13/18 Sex
--- OUTSIDE RECORDS SUMMARY | 2022-10-18 19:07 | XMS_ITS | Continuity of Care Document ---
:2001 Author Organization [facility] Address [address] [place] [address]- Care Team Providers Name Role Phone Evelyn Chun DO Primary Care Physician [place] [facility] [place] 02[place]03[place]21 - 03/05/21 [facility] [address] [place] [id number]- Attending Physician: Jamal Torres Admitting Physician: Jamal Torres Referring Physician: AdmtrJamal Allergies, Adverse Reactions, Alerts Substance Reaction Severity [...]
--- OUTSIDE RECORDS SUMMARY | 2022-10-18 19:07 | XMS_ITS | Continuity of Care Document ---
:2001 Author Organization [facility] Address [address] [place] [address]- Care Team Providers Name Role Phone Evelyn Chun DO Primary Care Physician [place] [facility] [place]20 [facility] [address] [place] [id number]- [facility] Attending Physician: France Grant DO Allergies, Adverse Reactions, Alerts Substance Reaction Severity Status NKA Active Medications levothyroxine 175 mcg (0.175 mg) oral tablet 1 tablet = 175 mcg, By Mouth, Daily, # 30 tablet, 0 Refills, Maintenance, 05/14/20 13:09:00 EDT, Tablet, [id number], 159, cm, 05/10/19 11:27:00 EDT, Height, 54.5, kg, 05/10/19 11:27:00 EDT, DryWeight Start Date: 05/14/20 Stop Date: 06/13/20 Status: Ordered Problem List Condition Effective Dates Status Health Status Informant Acquired hypothyroidism(Confirmed) Active Graves' disease(Confirmed) Active Impaired fasting glucose(Confirmed) Active Social History Social History Type Response Smoking Status Never smoker entered on: 01/13/18 Sex
--- OUTSIDE RECORDS SUMMARY | 2022-10-18 19:07 | XMS_ITS | Continuity of Care Document ---
:2001 Author Organization [facility] Address [address] [place] [address]- Care Team Providers Name Role Phone Evelyn Chun DO Primary Care Physician [phone] [place] [facility] [place] 09/06/20 [facility] [address] [place] [phone]- [facility] Attending Physician: Rebecca Reese MD Allergies, Adverse Reactions, Alerts Substance Reaction Severity Status NKA Active Medications levothyroxine 175 mcg (0.175 mg) oral tablet 1 tablet, By Mouth, Daily, # 30 tablet, 0 Refills, Maintenance, 08/20/20 10:04:00 EDT, [id number], 159, cm, 05/10/19 11:27:00 EDT, Height, 54.5, kg, 05/10/19 11:27:00 EDT, Dry Weight Start Date: 08/20/20 Status: Ordered Problem List Condition Effective Dates Status Health Status Informant Acquired hypothyroidism(Confirmed) Active Graves' disease(Confirmed) Active Impaired fasting glucose(Confirmed) Active Social History Social History Type Response Smoking Status Never smoker entered on: 01/13/18 Sex
--- OUTSIDE RECORDS SUMMARY | 2022-10-18 19:08 | XMS_ITS | Continuity of Care Document ---
:2001 Author Organization [facility] Address [address] [place] [address]- Care Team Providers Name Role Phone Evelyn Chun DO Primary Care Physician Encounter [facility] [place] Date(s): 08/07/20 - 09/06/20 [facility] [address] [place] [id number]- [facility] Allergies, Adverse Reactions, Alerts Substance Reaction Severity Status NKA Active Medications levothyroxine 175 mcg (0.175 mg) oral tablet 1 tablet, By Mouth, Daily, # 30 tablet, 0 Refills, Maintenance, 08/20/20 10:04:00 EDT, [id number], 159, cm, 05/10/19 11:27:00 EDT, Height, 54.5, kg, 05/10/19 11:27:00 EDT, Dry Weight Start Date: 08/20/20 Status: Ordered Problem List Condition Effective Dates Status Health Status Informant Acquired hypothyroidism(Confirmed) Active Graves' disease(Confirmed) Active Impaired fasting glucose(Confirmed) Active Social History Social History Type Response Smoking Status Never smoker entered on: 01/13/18 Sex
--- OUTSIDE RECORDS SUMMARY | 2022-10-18 19:08 | XMS_ITS | Continuity of Care Document ---
:2001 Author Organization [facility] Address [address] [place] [address]- Care Team Providers Name Role Phone Evelyn Chun DO Primary Care Physician Encounter [facility] Date(s): 07/25/20 - 08/24/20 [facility] [address] [place] [phone]- [facility] Allergies, Adverse Reactions, Alerts Substance Reaction Severity Status NKA Active Medications levothyroxine 175 mcg (0.175 mg) oral tablet 1 tablet, By Mouth, Daily, # 30 tablet, 0 Refills, Maintenance, 08/20/20 10:04:00 EDT, [id number], 159, cm, 05/10/19 11:27:00 EDT, Height, 54.5, kg, 05/10/19 11:27:00 EDT, Dry Weight Start Date: 08/20/20 Status: Ordered Problem List Condition Effective Dates Status Health Status Informant Acquired hypothyroidism(Confirmed) Active Graves' disease(Confirmed) Active Impaired fasting glucose(Confirmed) Active Social History Social History Type Response Smoking Status Never smoker entered on: 01/13/18 Sex
--- OUTSIDE RECORDS SUMMARY | 2022-10-18 19:08 | XMS_ITS | Continuity of Care Document ---
:2001 Author Organization [facility] Address [address] [place] [address]- Care Team Providers Name Role Phone Evelyn Chun DO Primary Care Physician [phone] Encounter [facility] [place] Date(s): 05/22/20 - 06/21/20 [facility] [address] [place] [id number]- [facility] Attending Physician: Brian, Jamal Admitting Physician: AdmtrJamal Referring Physician: Admtr, Jamal Allergies, Adverse Reactions, Alerts Substance Reaction Severity [...]
--- OUTSIDE RECORDS SUMMARY | 2022-10-18 19:08 | XMS_ITS | Continuity of Care Document ---
:2001 Author Organization [facility] Address [address] [place] [id number]- Care Team Providers Name Role Phone Evelyn Chun DO Primary Care Physician Encounter [facility] Date(s): 12/26/21 - 01/25/22 [facility] [address] [place] [id number]- Allergies, Adverse Reactions, Alerts No Known Allergies Medications levothyroxine 175 mcg (0.175 mg) oral tablet 1 tablet, By Mouth, Daily, # 30 tablet, 0 Refills, Maintenance, 12/26/21 15:39:00 EST, [id number] Start Date: 12/26/21 Status: Ordered Problem List Condition Effective Dates Status Health Status Informant Acquired hypothyroidism(Confirmed) Active Graves' disease(Confirmed) Active Impaired fasting glucose(Confirmed) Active Social History Social History Type Response Smoking Status Never smoker entered on: 01/13/18 Sex
--- NOTE | 2022-10-18 19:15 | ED.FALL ---
HPI - Fall General Chief Complaint: Fall Stated Complaint: fell on back and head Time Seen by Provider: 10/18/22 19:04 Source: patient Mode of arrival: ambulatory History of Present Illness HPI Narrative: 22-year-old female with a past medical history of Graves disease presenting to the ED complaining of mild headache, neck and back pain s/p mechanical slip and fall off [employer] platform at work around 11:00. States was stepping out of machine when slipped falling on back then hitting head on concrete, denies LOC. Denies taking anticoagulation. Denies any radiation of pain down lower extremities, numbness, tingling, weakness, CP/SOB, abdominal pain, nausea/vomiting MD complaint: fall Onset (ago): hour(s) Related Data Previous Rx's Medication Instructions Recorded famotidine 20 mg tablet (Pepcid) 20 mg PO BID 10 days #20 tabs 10/05/21 ondansetron 4 mg disintegrating 4 mg PO Q8H 4 days #12 tabs 06/09/22 tablet acetaminophen 500 mg tablet 500 mg PO Q6H PRN fever or pain 10/18/22 (Tylenol Extra Strength) #14 tabs cyclobenzaprine 5 mg tablet 5 mg PO Q8H PRN pain (scale score 10/18/22 7-10) 5 days #14 tabs lidocaine 5 % topical patch 1 patch topical DAILY PRN pain #30 10/18/22 (Lidoderm) ea naproxen 500 mg tablet 500 mg PO BID PRN pain 10 days #20 10/18/22 tabs Allergies Allergy/AdvReac Type Severity Reaction Status Date / Time No Known Allergies Allergy Verified 10/18/22 18:18 Review of Systems Review of Systems: Constitutional: No Fever, No Chills, No Fatigue, No Malaise ENT/Mouth: No Ear Pain, No Nasal Congestion, No Hoarseness, No sore throat, No Rhinorrhea, No Swallowing Difficulty Eyes: No Eye Pain, No Swelling, No Redness, No Discharge, No Vision Changes Cardiovascular: No Chest Pain, No SOB, No Edema, No Palpitations Respiratory: No Cough, No Sputum, No Dyspnea Gastrointestinal: No Nausea, No Vomiting, No Diarrhea, No Constipation, No Abdominal pain Genitourinary: No Dysuria, No Urinary Frequency, No Hematuria, No Urinary Incontinence/retention, No Flank Pain Musculoskeletal: + joint pain, No Myalgias, No Joint Swelling Skin: No Skin Lesions, No rash Neuro: No Weakness, No Numbness, No Paresthesias, No Loss of Consciousness, No Dizziness, + Headache Yes all other systems are reviewed and are negative Constitutional: Constitutional: Reports as per HPI Neurologic: Denies Sensory deficit (Neuro) [facility] Past Medical History Attestation statement: The following information was validated with the patient. Medical History Graves disease Social History Social History Alcohol intake: current Patient Tobacco Use Status: Current someday Tobacco user Substance Use Type: Marijuana Advance Directives: No Advance Directives Information Provided: Yes Physical Exam Vital Signs: Vital Signs: Last Vital Signs Temp 98 F 10/18/22 19:25 Pulse 87 10/18/22 19:25 Resp 20 10/18/22 19:25 BP 125/94 H 10/18/22 19:25 Pulse Ox 99 10/18/22 19:25 O2 Del Method 10/18/22 19:25 BMI result Body Mass Index 23.9 Const: General: cooperative, healthy appearing, no acute distress, alert, awake and Physically active Orientation/consciousness: patient oriented x3 Limitations: no limitations HEENT: Head: Yes normal to inspection and Yes atraumatic Ears: hearing grossly normal bilaterally General nose exam: Normal external nose present Face and sinus: Yes normal facial exam Throat: Yes posterior oropharynx normal, Yes tonsils normal and Yes uvula midline Eyes: General: appearance normal, both eyes and all related structures Pupils: Equal, round and reactive pupils present EOM: EOMs intact bilaterally Neck: Other: + midline cervical spinous tenderness, no step-off Neck: Yes normal visual inspection, Yes no meningeal signs, Yes supple and No anterior neck swelling Chest: Other: + abrasion noted to right scapular area with tenderness to palpation. Resp: Effort & Inspection: normal respiratory effort and no respiratory distress Auscultation: clear to auscultation bilaterally Cardio: Rate: regular rate Heart sounds: S1 normal heart sound present and S2 normal heart sound present GI: Inspection: Yes normal to inspection Palpation (GI): Soft to palpation, nontender, no guarding and not rigid : General: Yes no CVA tenderness Back/Spine/Pelvis: Other: No midline thoracic/lumbar spinous tenderness/step-off or deformity Back: no CVA tenderness Skin: Rashes: no rashes Wounds: no wounds Neuro: Other: Strength intact throughout. No saddle anesthesia. Sensation intact to light touch. Neurovascular intact distally General: patient oriented x3, gait normal, tone normal, moves all extremities, no meningeal signs, no focal motor deficits and CN's II-XI intact bilaterally Cranial nerves: Yes Equal, round and reactive pupils present Gait exam (Neuro): Normal gait present Motor exam (neuro): 5/5 motor strength present throughout Sensory Exam: No Sensory deficit (Neuro) Extrem: General: Yes normal to inspection Course Course Course Narrative: XR lumbar spine 2-3V/XR thoracic spine 3V IMPRESSION: 1.? No subluxation or fracture identified in the thoracic or lumbar spine. 2.? Preserved intervertebral disc space heights. ? CT head/brain wo IV con/CT cervical spine wo IV con IMPRESSION: 1.? No intracranial hemorrhage or calvarial fracture. 2.? No traumatic subluxation or acute cervical spine fracture. ? Results discussed with patient including worrisome signs and symptoms and strict return precautions, and when to return to the emergency department. They verbalized understanding and feel safe for discharge at this time. Medications Administered Discontinued Medications Generic Name Dose Route Start Last Admin Trade Name Rosa PRN Reason Stop Dose Admin Cyclobenzaprine HCl 5 mg 10/18/22 19:15 10/18/22 20:08 Cyclobenzaprine Hcl 5 Mg Tablet PO 10/18/22 19:16 5 mg ONCE ONE Administration Lidocaine 1 patch 10/18/22 19:15 10/18/22 20:08 Lidocaine 4 % Patch Adh..Patch TRANSDERMA 10/18/22 19:16 1 patch ONCE ONE Administration Protocol MDM - Fall MDM Narrative Medical decision making narrative: 22-year-old female with a past medical history of Graves disease presenting to the ED complaining of mild headache, neck and back pain s/p mechanical slip and fall off [employer] platform at work around 11:00. On exam vital signs stable, NAD, nontoxic appearing, + midline cervical spinous tenderness, no midline thoracic/lumbar spinous tenderness. Erythema/abrasion noted to right scapular region. No evidence of head trauma. No focal neuro deficits. Concern for fracture vs MSK pain vs contusion. Rule out ICH vs concussion. Plan: X-rays, head/C-spine CT Differential Diagnosis Differential diagnosis: Likely fracture, compression fracture and concussion without loss of consciousness Medical Records Attestation: I reviewed the patient's medical records. Lab Data Attestation: I reviewed the patient's lab results. Labs: Lab Results 10/18/22 Range/Units 18:38 Urine Test NEGATIVE (NEGATIVE) Discharge Plan Discharge Clinical Impression: Back pain, Head injury Patient Disposition: Home, Self-Care Instructions: Head Injury (ED), Back Pain (ED) Additional Instructions: Your x-rays & scans do not show any acute finding Your pain is likely musculoskeletal Flexeril is a muscle relaxer, take at night as it makes you drowsy, do not drive, drink alcohol, or operate machinery while taking it Naproxen as an anti-inflammatory / pain medication, take with food Lidoderm patches are numbing patches, apply to painful area In addition take Tylenol at home If symptoms persist or worsen, pain becomes unbearable, you developed urinary retention or incontinence, or weakness return to the ED Prescriptions: New acetaminophen [Tylenol Extra Strength] 500 mg tablet 500 mg PO Q6H PRN (Reason: fever or pain) Qty: 14 0RF lidocaine [Lidoderm] 5 % adhesive patch,medicated 1 patch topical DAILY MDD remove after 12 hours PRN (Reason: pain) Qty: 30 0RF Rx Instructions: leave on most painful area for up to 12 hrs naproxen 500 mg tablet 500 mg PO BID PRN (Reason: pain) 10 Days Qty: 20 0RF cyclobenzaprine 5 mg tablet 5 mg PO Q8H PRN (Reason: pain (scale score 7-10)) 5 Days Qty: 14 0RF No Action famotidine [Pepcid] 20 mg tablet 20 mg PO BID 10 Days Qty: 20 0RF ondansetron 4 mg tablet,disintegrating 4 mg PO Q8H 4 Days Qty: 12 0RF Referrals: Physician,Unknown J [Primary Care Provider] - Stand Alone Forms: Work/School Release
[2022-10-18 19:25] VITALS: BP 125/94; PULSE 87; RESP 20; TEMP 36.6; O2SAT 99
[2022-10-18] MEDS: Lidocaine 4 % Patch ADH..PATCH 1 PATCH TRANSDERMA (20:08)
[2022-10-18] MEDS: Cyclobenzaprine HCl 5 MG TABLET PO (20:08)
== END 2022-10-18 21:22 | disposition home or self-care (01) ==
PROVIDERS: Physician Assistant; Emergency Provider Internal Medicine
DX: S09.90XA Unspecified injury of head, initial encounter (principal); R51.9 Headache, unspecified; M54.2 Cervicalgia; M54.50 Low back pain, unspecified; M54.6 Pain in thoracic spine; F17.200 Nicotine dependence, unspecified, uncomplicated; W01.0XXA Fall on same level from slipping, tripping and stumbling without subsequent striking against object, initial encounter; Y93.9 Activity, unspecified; Y92.9 Unspecified place or not applicable; Y99.9 Unspecified external cause status; Z79.899 Other long term (current) drug therapy; Z71.6 Tobacco abuse counseling
CPT/HCPCS: 70450; 72072; 72100; 72125; 81025; 99283

== ENCOUNTER 2023-07-09 18:10 | Emergency (ER) | payer OTHER, SELFPAY ==
--- NOTE | ~2023-07-09 | US_ITS ---
EXAMINATION: US PELVIS CLINICAL INFORMATION: Pain. Currently having the menstrual period. COMPARISON: None available. TECHNIQUE: Ultrasound of the pelvis is performed using transabdominal transducer. According to the technologist notes, the patient was unable to tolerate transvaginal exam. FINDINGS: Very limited essentially nondiagnostic examination. The uterus appears to be retroflexed and anteverted measuring approximately 6.6 x 3.7 x 2.4 cm. The endometrium is not well visualized. The ovaries are not seen. No significant amount of free fluid. US/US pelvic complete IMPRESSION: Very limited transabdominal examination secondary to bladder decompression, patient body habitus and shadowing from overlying bowel gas. Further evaluation with CT or MRI could be obtained as clinically indicated.
[2023-07-09 18:43] VITALS: BP 137/92; PULSE 85; RESP 16; TEMP 36.4; O2SAT 100; BMI 31.0
--- NOTE | 2023-07-09 18:50 | ED_ITS ---
patient eloped after RME HPI - Abdominal Pain General Chief Complaint: Abdominal Pain Stated Complaint: abdominal pain Time Seen by Provider: 07/09/23 21:16 Source: patient Mode of arrival: ambulatory Limitations: no limitations Related Data Previous Rx's Medication Instructions Recorded famotidine 20 mg tablet (Pepcid) 20 mg PO BID 10 days #20 tabs 10/05/21 ondansetron 4 mg disintegrating 4 mg PO Q8H 4 days #12 tabs 06/09/22 tablet acetaminophen 500 mg tablet 500 mg PO Q6H PRN fever or pain 10/18/22 (Tylenol Extra Strength) #14 tabs cyclobenzaprine 5 mg tablet 5 mg PO Q8H PRN pain (scale score 10/18/22 7-10) 5 days #14 tabs lidocaine 5 % topical patch 1 patch topical DAILY PRN pain #30 10/18/22 (Lidoderm) ea naproxen 500 mg tablet 500 mg PO BID PRN pain 10 days #20 10/18/22 tabs Allergies Allergy/AdvReac Type Severity Reaction Status Date / Time No Known Allergies Allergy Verified 07/09/23 18:43 [facility] Past Medical History Medical History Graves disease Social History Social History Alcohol intake: current Patient Tobacco Use Status: Current someday Tobacco user Substance Use Type: Marijuana Advance Directives: No Advance Directives Information Provided: No Physical Exam ED Vital Signs: Vital Signs - 24 hr 07/09/23 18:43 Temperature 97.5 F Pulse Rate 85 Respiratory Rate 16 Blood Pressure 137/92 H Pulse Oximetry 100 Oxygen Delivery Method Room Air BMI result Body Mass Index 31.0 Course Course Course Narrative: This is an RME: Additional HPI, ROS, PE not included below will be deferred to primary provider. 23 year old female with history of ovarian cysts presents with severe bilateral ovarian pain. Patient is currently menstruating but this period has not been any different. Patient denies risk of . Plan: urine, imaging Reevaluation(s) Reevaluation #1: eloped prior to me seeing patient Medical Decision Making Lab Data Labs: Lab Results 07/09/23 07/09/23 Range/Units 18:55 18:55 Urine Color Ware A Urine Appearance Cloudy Urine pH 7.0 (5.0-9.0) Ur Specific [place] >= 1.030 H (1.005-1.025) Urine Protein 100 (2+) H (Neg-Trace) mg/dL Urine Glucose (UA) Negative (Negative) mg/dL Urine Ketones Trace (Negative) mg/dL Urine Blood Large (3+) H (Negative) Urine Nitrite Negative (Negative) Ur Leukocyte Esterase Small (1+) H (Negative) Urine RBC >20 H (0-2) /HPF Urine WBC 11-20 H (0-5) /HPF Ur Squamous Epith Cells 3-5 (0-2) /HPF Urine Bacteria 2+ (None Seen) Hyaline Casts 0-2 (0-2) /LPF Urine Test NEGATIVE (NEGATIVE) Discharge Plan Discharge Clinical Impression: Abdominal pain Patient Disposition: Elopement Prescriptions: No Action famotidine [Pepcid] 20 mg tablet 20 mg PO BID 10 Days Qty: 20 0RF ondansetron 4 mg tablet,disintegrating 4 mg PO Q8H 4 Days Qty: 12 0RF acetaminophen [Tylenol Extra Strength] 500 mg tablet 500 mg PO Q6H PRN (Reason: fever or pain) Qty: 14 0RF lidocaine [Lidoderm] 5 % adhesive patch,medicated 1 patch topical DAILY MDD remove after 12 hours PRN (Reason: pain) Qty: 30 0RF Rx Instructions: leave on most painful area for up to 12 hrs naproxen 500 mg tablet 500 mg PO BID PRN (Reason: pain) 10 Days Qty: 20 0RF cyclobenzaprine 5 mg tablet 5 mg PO Q8H PRN (Reason: pain (scale score 7-10)) 5 Days Qty: 14 0RF Interventions: ED Discharge Assessment Last Done: 07/09/23 22:10 Discharge Date/Time: 07/09/23 22:10
[2023-07-09 19:05] LABS: UPreg QC Valid YES; Urine Pregnancy NEGATIVE (NEGATIVE)
[2023-07-09 19:17] LABS: Appearance Urine Cloudy; Color Urine Orange; Glucose Urine UA Negative (Negative); Leukocyte Esterase Urine Small (1+) (Negative); Nitrite Urine Negative (Negative); Specific Gravity - Urine >= 1.030 (1.005-1.025); UMIC TRIGGER UACC YES; Urine Blood Large (3+) (Negative); Urine Ketones Trace mg/dL (Negative); Urine Protein 100 (2+) mg/dL (Neg-Trace)
[2023-07-09 19:18] LABS: Bacteria Urine 2+ (None Seen); Hyaline Casts Urine 0-2 /LPF (0-2); RBC Urine >20 /HPF (0-2); UACC Culture Trigger YES
== END 2023-07-09 22:10 | disposition left against medical advice (07) ==
PROVIDERS: Physician Assistant; Emergency Provider Emergency Medicine
DX: R10.9 Unspecified abdominal pain (principal)
CPT/HCPCS: 76856; 81001; 81003; 81025; 87086; 99282; 99284

== ENCOUNTER 2023-09-08 08:27 | Outpatient (AMB) | payer OTHER, SELFPAY ==
[2023-09-08 08:31] VITALS: BP 110/86; PULSE 87; O2SAT 99; BMI 28.9
--- NOTE | 2023-09-08 08:31 | MHC.PC.OV ---
Vital Signs 09/08/23 08:31 Height 5 ft 3 in Weight 163 lb BMI 28.9 BP 110/86 Blood Pressure Location Lt brachial Position Sitting Pulse 87 Pulse Source Pulse Oximeter Temp Source Skin Pulse Oximetry (%) 99 Oxygen Delivery Method Room Air Intake Visit Reasons: New Patient/ Thyroid/ Request Physical Intake Note: Patient is here today for a physical. Allergies No Known Allergies Allergy (Verified 09/08/23 08:44) Medication List - Last Reconciled 09/08/23 by JACLYN Wei levothyroxine 175 mcg PO DAILY Tobacco use date assessed: 09/08/23 Dental Screening Dental Screen Date: 09/08/23 Did you have a dental visit in the last 12 months?: No Did you have a dental problem in the last 6 months where you did not have access to dental care?: No HPI New Patient/ Thyroid/ Request Physical HPI Details Patient is a 23-year-old female who presents today for physical exam as a new patient. Previous PCP about 4 years ago. Medical history significant for hypothyroidism associated with surgical procedure-status post thyroidectomy-currently on levothyroxine. Patient will call for eye and dental exams. Patient reports tetanus vaccine in 2017. We also discussed patient's need for Pap smear, will refer. Patient reports smoking four cigars per day, encouraged smoking cessation. 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 Patient denies shortness of breath or chest pain. Patient reports that in the past she was seen by [facility] for hypothyroidism and she needs a new referral now. [facility] Medical History Graves disease Surgical History History of thyroidectomy Family History Mother Hypothyroidism (acquired) Father No problems noted. Paternal Grandmother Diabetes Social History Housing: Apartment Alcohol intake: current Patient Tobacco Use Status: Current someday Tobacco user Substance Use Type: Marijuana service: No Current occupational status: employed Cognitive needs: No Hearing needs: No Vision needs: No Questionnaire PHQ-9 Over the last 2 weeks, how often have you been bothered by any of the following problems? 1. Little interest or pleasure in doing things: not at all 2. Feeling down, depressed, or hopeless: not at all 3. Trouble falling or staying asleep, or sleeping too much: not at all 4. Feeling tired or having little energy: not at all 5. Poor appetite or overeating: not at all 6. Feeling bad about yourself - or that you are a failure or have let yourself or your family down: not at all 7. Trouble concentrating on things, such as reading the newspaper or watching television: not at all 8. Moving or speaking so slowly that other people could have noticed. Or the opposite - being so fidgety or restless that you have been moving around a lot more than usual: not at all 9. Thoughts that you would be better off or of hurting yourself in some way: not at all Total score: 0 Depression Screening Interpretation: Negative Depression Screening Done: Yes 53375 - PHQ-9 Billing: Yes Source: Developed by Drs. Pritesh Teague, Lucila Iqbal, Dylan Ochoa and colleagues, with an educational philip from [employer]. AUDIT C Alcohol Use Questionnaire (AUDIT-C) 1. How often do you have a drink containing alcohol?: Never 3. How often do you have six or more drinks on one occasion?: Never Total Score: 0 Score Reviewed/Action Taken: No MAGGIE-7 AMB Questionnaire MAGGIE-7 Date MAGGIE - 7 assessed: 09/08/23 Feeling nervous, anxious, or on edge: 0 = Not at all Not being able to stop or control worryin = Not at all Worrying too much about different things: 0 = Not at all Trouble relaxin = Not at all Being so restless that it is hard to sit still: 0 = Not at all Becoming easily annoyed or irritable: 0 = Not at all Feeling afraid as if something awful might happen: 0 = Not at all Total MAGGIE-7 score (0-4 normal; 5-9 mild; 10-14 moderate; 15-21 severe): 0 Source: Developed by Drs. Pritesh Teague, Lucila Iqbal, Dylan Ochoa and colleagues, with an educational philip from [employer]. MAGGIE-7 Assessment Billing MAGGIE-7 Assessment Tool: MAGGIE-7 Assessment 00444 Review of Systems Const Denies body aches, Denies chills, Denies fever(s) and Denies headache(s) Eyes Denies change in vision ENT Denies dizziness, Denies otalgia, Denies headache(s), Denies nasal discharge, Denies sinus pain and Denies sore throat Card Denies chest pain, Denies edema, Denies lightheadedness and Denies dyspnea Resp Denies dyspnea and Denies wheezing GI Denies abdominal pain, Denies constipation, Denies diarrhea, Denies nausea and Denies vomiting Denies dysuria Musc Denies myalgias Skin/Breast Denies rash Neuro Denies dizziness and Denies headache(s) Aller/Immun Denies wheezing Physical exam (Primary Care) Vital Signs: Last Vital Signs Pulse 87 09/08/23 08:31 BP 110/86 09/08/23 08:31 Pulse Ox 99 09/08/23 08:31 Oxygen Delivery Method Room Air 09/08/23 08:31 BMI result Body Mass Index 28.9 Tobacco/Smoking Status: Tobacco use Status Tobacco use date assessed 09/08/23 09/08/23 08:37 Patient Tobacco Use Status Current someday Tobacco 09/08/23 08:37 PHQ-9: PHQ-9 Score PHQ-9: Total score 0 09/08/23 08:45 Depression Screening Interpretation: Negative Const General: cooperative and no acute distress Orientation/consciousness: patient oriented x3 HENMT Head: Yes normocephalic and Yes atraumatic Ears: TM's normal bilaterally Face and sinus: Yes sinuses nontender Mouth: oropharynx normal and moist mucous membranes Throat: Yes posterior oropharynx normal Eyes General: appearance normal, both eyes and all related structures Pupils: Equal, round and reactive pupils present EOM: EOMs intact bilaterally Neck Neck: Yes normal visual inspection, Yes full ROM and Yes no lymphadenopathy Resp Effort & Inspection: normal respiratory effort and able to speak in complete sentences Auscultation: clear to auscultation bilaterally, no crackles, no rales, no rhonchi and no wheezes Cardio Rate: regular rate Rhythm: regular rhythm Heart sounds: S1 normal heart sound present, S2 normal heart sound present and no murmurs GI Palpation (GI): Soft to palpation, not firm, nontender, no guarding, not rigid and no hepatosplenomegaly Auscultation: normal bowel sounds General: No CVA tenderness Back/Spine/Pelvis Back: No CVA tenderness Skin General skin exam: no rashes or lesions noted Neuro General: patient oriented x3 Cranial nerves: Yes Equal, round and reactive pupils present Gait exam (Neuro): Normal gait present Extrem General: Yes full ROM and No edema Office Procedures Flu Questionnaire Does the patient have a severe egg allergy?: No Does the patient have severe life threatening allergies?: No Does the patient have a fever or illness today?: No Has the patient ever had Guillain-[place] Syndrome?: No Has the patient ever had any past reaction to a flu shot?: No Immunizations flu vacc [id number] 6mos up(PF) 60 mcg(15 mcgx4)/0.5 mL IM syringe Performing Provider: JACLYN Wei Performing Location: [facility] Administered by: WILLOW Hartmann on 09/08/23 08:45 Dose Route Admin Location Dispensed Lot Number Expiration Date [place] Chief Of Surgery 0.5 mL IM Left Deltoid 0.5 mL [id number] 05/28/24 57266-641-05 [employer] VIS Given Date VIS Provided VIS Publication Date 09/08/23 Single Vaccine 21 Eligibility Eligibility Date Funding Source Not [facility] Eligible 09/08/23 Private Assessment and Plan Assessment & Plan (1) Adult general medical exam: Comment: Tetanus IZ 2017 per pt. Code(s): Z00.00 - Encounter for general adult medical examination without abnormal findings (2) Cervical cancer screening: Code(s): Z12.4 - Encounter for screening for malignant neoplasm of cervix (3) Hypothyroidism associated with surgical procedure: Code(s): E89.0 - Postprocedural hypothyroidism Plan: Levothyroxine 175 mcg daily Will check blood work Endocrinology referral for an evaluation (4) Overweight (BMI 25.0-29.9): Code(s): E66.3 - Overweight Plan: Healthy food choices and exercise as tolerated (5) Cigar smoker: Code(s): F17.290 - Nicotine dependence, other tobacco product, uncomplicated Plan: Smokes about 4 cigars per day, encouraged smoking cessation Plan Follow-up in 1 year for physical exam or sooner as needed Orders: Orders Vitamin D 25-OH Total Today E89.0 - Postprocedural hypothyroidism Comprehensive Met. Panel Today E89.0 - Postprocedural hypothyroidism Influenza [id number] Immunization Today Z23 - Encounter for immunization Vitamin B12 and Folate Today E89.0 - Postprocedural hypothyroidism Complete Blood Count Auto Diff Today E89.0 - Postprocedural hypothyroidism Thyroid Stimulating Hormone Today E89.0 - Postprocedural hypothyroidism Free T4 (Free Thyroxine) Today E89.0 - Postprocedural hypothyroidism Referrals Endocrinology Referral E89.0 - Postprocedural hypothyroidism FI[employer] Referral Z12.4 - Encounter for screening for malignant neoplasm of cervix Medications: New levothyroxine 175 mcg PO DAILY 60 tabs 0RF E89.0 - Postprocedural hypothyroidism Coding Level of Care Code New Pt Prev Care 18-39yr(84266 Diagnoses Adult general medical exam Z00.00 Cervical cancer screening Z12.4 Hypothyroidism associated with surgical procedure E89.0 Overweight (BMI 25.0-29.9) E66.3 Cigar smoker F17.290 Additional Codes MAGGIE-7 Assessment Billing - MAGGIE-7 Assessment Tool: MAGGIE-7 Assessment 32633 ([id number])
== END 2023-09-08 09:01 | disposition home or self-care (01) ==
PROVIDERS: Visit Provider Nurse Practitioner Family
DX: Z23 Encounter for immunization (principal); Z00.00 Encounter for general adult medical examination without abnormal findings; E89.0 Postprocedural hypothyroidism; E66.3 Overweight; Z68.28 Body mass index [BMI] 28.0-28.9, adult; F17.210 Nicotine dependence, cigarettes, uncomplicated
CPT/HCPCS: 90471; 90686; 99385

== ENCOUNTER 2023-09-24 11:51 | Outpatient (REF) | payer OTHER, SELFPAY ==
[2023-09-24 13:25] LABS: MANUAL DIFF FLAG NO
[2023-09-24 13:48] LABS: Basophils Percent Auto 0.5 % (0-2); Eosinophils Absolute Auto 0.1 X10*3/uL (0.0-0.4); Eosinophils Percent Auto 1.8 % (0-4); Hematocrit 39.7 % (37.0-47.0); Hemoglobin 13.6 g/dl (12.0-16.0); Imm Gran Abs Auto 0.01 X10*3/uL (0.00-0.03); Imm Gran Pct Auto 0.2 % (0.0-0.4); Lymphocytes Absolute Auto 1.8 X10*3/uL (1.2-4.9); Lymphocytes Percent Auto 32.1 % (20-40); Mean Corpuscular HGB Conc 34.3 g/dl (31.0-35.0); Mean Corpuscular Hemoglobin 32.4 pg (27.0-33.0); Mean Corpuscular Volume 94.5 fL (80.0-98.0); Mean Platelet Volume 9.8 fL (9.4-12.3); Monocytes Absolute Auto 0.4 X10*3/uL (0.1-1.2); Monocytes Percent Auto 6.5 % (2-11); Neutrophils Absolute Auto 3.4 x10*3/uL (2.0-8.3); Neutrophils Percent Auto 58.9 % (45-73); Platelet Count 295 X10*3/uL (160-400); Red Cell Distribution Width 13.4 % (11.0-16.0); White Blood Count 5.7 X10*3/uL (4.8-10.8)
[2023-09-24 14:11] LABS: Alanine Aminotransferase 12 U/L (0-31); Albumin Level 4.5 g/dL (3.5-5.0); Alkaline Phosphatase 52 U/L (39-117); Anion Gap 12 (12-20); Aspartate Amino Transferase 20 U/L (5-31); Bilirubin Total 0.3 mg/dL (0.0-1.0); Blood Urea Nitrogen 12 mg/dL (9-16); Calcium 9.3 mg/dL (8.4-10.2); Carbon Dioxide 25 mmol/L (22-29); Chloride 106 mmol/L (96-108); Estimated Glomerular Filt Rate > 60; Glucose Random 87 mg/dL (60-115); Potassium 3.8 mmol/L (3.3-5.1); Sodium 139 mmol/L (135-145); Total Protein 7.8 g/dL (6.5-8.0)
[2023-09-24 14:28] LABS: Thyroid Stimulating Hormone 38.43 uIU/mL (0.32-4.0); Vitamin D 25-OH Total 16.8 ng/mL (>30)
[2023-09-24 14:32] LABS: Folate 10.9 ng/mL (> or = 4.0); Vitamin B12 494 pg/mL (200-900)
== END 2023-09-24 11:52 | disposition home or self-care (01) ==
LOC: HO.10HDL 11:51
PROVIDERS: Visit Provider Nurse Practitioner Family
DX: E89.0 Postprocedural hypothyroidism (principal)
CPT/HCPCS: 36415; 80053; 82306; 82607; 82746; 84439; 84443; 85025

== ENCOUNTER 2024-05-19 22:26 | Emergency (ER) | payer OTHER, SELFPAY ==
--- NOTE | ~2024-05-19 | XR_ITS ---
EXAMINATION: XR CHEST CLINICAL INFORMATION: Cough. COMPARISON: Chest radiograph 06/10/2022. TECHNIQUE: Frontal view of the chest was obtained. FINDINGS: No significant abnormality is noted involving the heart, lungs, mediastinum, bony thorax or soft tissues. XR/XR chest 1V IMPRESSION: Unremarkable examination.
[2024-05-19 22:37] VITALS: BP 117/80; BP 124/85; PULSE 102; PULSE 99; RESP 20; TEMP 36.2; O2SAT 96; O2SAT 98; BMI 28.3
[2024-05-19 23:27] LABS: Influenza A PCR NEGATIVE (Negative); Influenza B PCR NEGATIVE (Negative); Resp Syncy Virus RNA Qual PCR NEGATIVE (Negative); SARS COV2 PCR INHOUSE NEGATIVE (Negative)
== END 2024-05-20 01:03 | disposition left against medical advice (07) ==
PROVIDERS: Emergency Provider Emergency Medicine
DX: R05.9 Cough, unspecified (principal); Z03.818 Encounter for observation for suspected exposure to other biological agents ruled out
CPT/HCPCS: 0241U; 71045; 99281

== ENCOUNTER 2024-05-21 14:01 | Emergency (ER) | payer OTHER, SELFPAY ==
--- NOTE | ~2024-05-21 | XR_ITS ---
EXAMINATION: Right ankle and foot x-ray CLINICAL INFORMATION: Trauma. Twisting injury. COMPARISON: None. TECHNIQUE: 3 views of the right foot and 3 views of the right ankle FINDINGS: Right foot: Bone alignment is normal. No fracture or dislocation. Joint spaces are normal. Soft tissues are normal. Right ankle: Bone alignment is normal. No fracture or dislocation. Normal ankle mortise. Normal soft tissues. XR/XR foot RT 2V IMPRESSION: Unremarkable exam.
--- NOTE | ~2024-05-21 | XR_ITS ---
EXAMINATION: Right ankle and foot x-ray CLINICAL INFORMATION: Trauma. Twisting injury. COMPARISON: None. TECHNIQUE: 3 views of the right foot and 3 views of the right ankle FINDINGS: Right foot: Bone alignment is normal. No fracture or dislocation. Joint spaces are normal. Soft tissues are normal. Right ankle: Bone alignment is normal. No fracture or dislocation. Normal ankle mortise. Normal soft tissues. XR/XR ankle RT 2V IMPRESSION: Unremarkable exam.
[2024-05-21 14:27] VITALS: BP 132/96; PULSE 89; RESP 16; TEMP 36.6; O2SAT 99; BMI 28.3
--- NOTE | 2024-05-21 14:33 | ED_ITS ---
HPI - General Adult General Chief complaint: Extremity Injury, Lower Stated complaint: R ankle injury Time Seen by Provider: 05/21/24 14:37 Source: patient Mode of arrival: ambulatory Limitations: no limitations History of Present Illness ED Provider: Ailin Retana APRN HPI narrative: 24-year-old female with a history of hypothyroidism presents the ER with complaints of right ankle injury. Patient reports to 3 days ago she had an inversion injury of the ankle while in the shower. She reports that she has had some slight pain and her job wants her to have clearance to return to work. She denies any difficulty with ambulation. No weakness, numbness, tingling, swelling of the extremity. No previous injury. Related Data Previous Rx's ?Medication ?Instructions ?Recorded levothyroxine 175 mcg tablet 175 mcg PO DAILY #60 tabs 09/24/23 cholecalciferol (vitamin D3) 50 50 mcg PO DAILY #90 tabs 05/21/24 mcg (2,000 unit) tablet Allergies Allergy/AdvReac Type Severity Reaction Status Date / Time No Known Allergies Allergy Verified 05/21/24 14:28 Review of Systems Review of Systems: Yes all other systems are reviewed and are negative Constitutional: Constitutional: Reports no additional constitutional complaints, Denies body ache(s), Denies chills, Denies fever(s), Denies headache(s) and Denies weakness Eyes: Eyes: Reports no additional eye complaints and Denies change in vision ENT: Reports system reviewed and no additional complaints, except as document ed, Denies dizziness, Denies headache(s), Denies nasal congestion, Denies nasal discharge and Denies neck pain Cardiovascular: Cardiovascular: Reports no additional cardiovascular complaints, Denies chest pain, Denies leg edema and Denies dyspnea Respiratory: Respiratory: Reports no additional respiratory complaints, Denies cough and Denies dyspnea Gastrointestinal: Gastrointestinal: Reports no additional gastrointestinal complaints, Denies abdominal pain, Denies diarrhea, Denies nausea and Denies vomiting Genitourinary: Genitourinary: Reports no additional female genitourinary complaints and Denies urinary incontinence Musculoskeletal: Musculoskeletal: Reports no additional musculoskeletal complaints, Denies back pain, Reports arthralgias, Denies joint swelling, Denies limited range of motion, Denies neck pain, Denies numbness and Denies tingling Integumentary/Breasts: Skin/Breast: Reports system reviewed and no additional complaints, except as docu and Denies rash Neurologic: Reports system reviewed and no additional complaints, except as documented, Denies Abnormal speech present, Denies dizziness, Denies headache(s), Denies numbness, Denies tingling and Denies weakness PMFSH Past Medical History Attestation statement: The following information was validated with the patient. Source: old records reviewed and nursing notes reviewed Medical History Graves disease Surgical History History of thyroidectomy Family History Family History Mother Hypothyroidism (acquired) Father No problems noted. Paternal Grandmother Diabetes Social History Social History Housing: Apartment Alcohol intake: current Patient Tobacco Use Status: Current someday Tobacco user Substance Use Type: Marijuana Advance Directives: No Advance Directives Information Provided: No Do you have a plan to hurt others: No Plan service: No Current occupational status: employed Cognitive needs: No Hearing needs: No Vision needs: No Physical Exam ED Vital Signs: Vital Signs - 24 hr 05/21/24 14:27 05/21/24 15:11 05/21/24 15:19 Temperature 97.9 F 98.1 F 98.1 F Pulse Rate 89 86 86 Respiratory Rate 16 18 18 Blood Pressure 132/96 H 138/88 138/88 Pulse Oximetry 99 98 98 Oxygen Delivery Method Room Air Room Air Room Air BMI result Body Mass Index 28.3 Const General: cooperative, healthy appearing, comfortable and no acute distress Orientation/consciousness: patient oriented x3 Limitations: no limitations HENMT Head: Yes normal to inspection Ears: hearing grossly normal bilaterally General nose exam: Normal external nose present Face and sinus: Yes normal facial exam Mouth: Normal oral and palatal mucosa present Throat: Yes posterior oropharynx normal Eyes General: appearance normal, both eyes and all related structures Pupils: Equal, round and reactive pupils present Neck Neck: Yes normal visual inspection Chest Chest palpation & inspection: normal inspection of the chest Resp Effort & Inspection: normal respiratory effort Auscultation: clear to auscultation bilaterally Cardio Rate: regular rate Rhythm: regular rhythm Peripheral pulses: Peripheral pulses 2+ throughout GI Inspection: Yes normal to inspection Palpation (GI): Soft to palpation and nontender Auscultation: normal bowel sounds Back/Spine/Pelvis Thoracic/Lumbar Spine: thoracic and lumbar spine normal to inspection Skin General skin exam: no rashes or lesions noted Neuro General: patient oriented x3, no focal motor deficits and normal sensation to monofilament Cranial nerves: Yes Equal, round and reactive pupils present Cognition (Neuro): normal cognition Speech: No Abnormal speech present Gait exam (Neuro): Normal gait present Motor exam (neuro): 5/5 motor strength present throughout Extrem Other: I am unable to elicit any pain on palpation over the right foot or right ankle. There is full active passive range of motion of both the ankle and the foot. There is normal sensation. There is no ligamental laxity. No posterior calf pain. Negative Mclain sign. 2+ DP and PT pulses. General: Yes normal to inspection Course Course Course Narrative: RME: done by CHANDRA Hood. Patient is sent by employer for evaluation of right ankle foot pain. Patient presently has no right ankle foot pain. Patient s tates she was in the shower and she twisted her right ankle and foot so she would not fall. Patient denies fall to the ground or hitting head. Patient states presently no pain Medical Decision Making Medical Decision Making MDM Narrative: 24-year-old female with a history of hypothyroidism presents the ER with complaints of right ankle injury. Patient reports to 3 days ago she had an inversion injury of the ankle while in the shower. She reports that she has had some slight pain and her job wants her to have clearance to return to work. She denies any difficulty with ambulation. No weakness, numbness, tingling, swelling of the extremity. No previous injury. I am unable to elicit any pain on palpation over the right foot or right ankle. There is full active passive range of motion of both the ankle and the foot. There is normal sensation. There is no ligamental laxity. No posterior calf pain. Negative Mclain sign. 2+ DP and PT pulses. Per patient she needs negative x-ray before return to work will obtain x-ray Differential Diagnosis Differential Diagnoses: The differential diagnosis associated with the presentation includes sprain, strain Low suspicion for fracture, dislocation, vascular injury Admission/Observation Consideration of admission/observation: Escalation of care including admission/observation considered Low suspicion for fracture, dislocation, vascular injury requiring advanced imaging, urgent orthopedic consultation Independent Interpretation I performed an independent interpretation of an: Plain X-Ray Interpretation: I indepedentely reviewed the x-ray and agree with rad report Radiology Impression Discussion of test interpretation with radiology: I have reviewed the radiologist's reading. Radiologist Impression: [place] [id number] XRay Report Signed Patient: Kelly New MR#: [id number] : 2000 Acct:[id number] Age/Sex: 24 / F ADM Date: 05/21/24 Loc: HO.ED Attending Dr: Ordering Physician: Bharat Hood Date of Service: 05/21/24 Procedure(s): XR foot RT 2V Accession Number(s): [id number] cc: Bharat Hood; Physician,Unknown ~ EXAMINATION: Right ankle and foot x-ray CLINICAL INFORMATION: Trauma. Twisting injury. COMPARISON: None. TECHNIQUE: 3 views of the right foot and 3 views of the right ankle FINDINGS: Right foot: Bone alignment is normal. No fracture or dislocation. Joint spaces are normal. Soft tissues are normal. Right ankle: Bone alignment is normal. No fracture or dislocation. Normal ankle mortise. Normal soft tissues. XR/XR foot RT 2V IMPRESSION: Unremarkable exam. [address] [address] XRay Report Signed Patient: Kelly New MR#: [id number] : 2000 Acct:[id number] Age/Sex: 24 / F ADM Date: 05/21/24 Loc: HO.ED Attending Dr: Ordering Physician: Bharat Hood Date of Service: 05/21/24 Procedure(s): XR ankle RT 2V Accession Number(s): [id number] cc: Bharat Hood; Physician,Unknown ~ EXAMINATION: Right ankle and foot x-ray CLINICAL INFORMATION: Trauma. Twisting injury. COMPARISON: None. TECHNIQUE: 3 views of the right foot and 3 views of the right ankle FINDINGS: Right foot: Bone alignment is normal. No fracture or dislocation. Joint spaces are normal. Soft tissues are normal. Right ankle: Bone alignment is normal. No fracture or dislocation. Normal ankle mortise. Normal soft tissues. XR/XR ankle RT 2V IMPRESSION: Unremarkable exam. Independent Historian Clinical information obtained from an independent historian. History obtained from or confirmed by: Friend Tests considered The following testing was considered but not selected: low suspicion for fracture, dislocation, vascular injury requiring advanced imaging Prescription Management I considered prescription management with: Pain Medication Discharge Plan Discharge Clinical Impression: Ankle sprain and strain Patient Disposition: Home, Self-Care Instructions: Ankle Sprain (ED) Additional Instructions: May return to work 05/22 with no restrictions Prescriptions: No Action levothyroxine 175 mcg tablet 175 mcg PO DAILY Qty: 60 0RF cholecalciferol (vitamin D3) 50 mcg (2,000 unit) tablet 50 mcg PO DAILY Qty: 90 0RF Referrals: Physician,Unknown J [Primary Care Provider] - 1 week Stand Alone Forms: Work/School Release Interventions: ED Discharge Assessment Last Done: 05/21/24 15:19 Discharge Date/Time: 05/21/24 15:20 Print Language: Moroccan
[2024-05-21 15:11] VITALS: BP 138/88; PULSE 86; RESP 18; TEMP 36.7; O2SAT 98
[2024-05-21 15:19] VITALS: BP 138/88; PULSE 86; RESP 18; TEMP 36.7; O2SAT 98
== END 2024-05-21 15:20 | disposition home or self-care (01) ==
PROVIDERS: Emergency Provider Emergency Medicine
DX: S99.911A Unspecified injury of right ankle, initial encounter (principal); S93.401A Sprain of unspecified ligament of right ankle, initial encounter; S96.911A Strain of unspecified muscle and tendon at ankle and foot level, right foot, initial encounter; X50.1XXA Overexertion from prolonged static or awkward postures, initial encounter; Y93.9 Activity, unspecified; Y92.89 Other specified places as the place of occurrence of the external cause; Y99.9 Unspecified external cause status
CPT/HCPCS: 73600; 73620; 99282; 99283

== ENCOUNTER 2024-05-22 06:29 | Emergency (ER) | payer OTHER, SELFPAY ==
[2024-05-22 06:37] VITALS: BP 114/87; PULSE 96; RESP 18; TEMP 36.9; O2SAT 97; BMI 28.5
--- NOTE | 2024-05-22 07:42 | PC.NURSE ---
patient arrives throught external triage, ambulatory with steady gait, patient states her mom accidentally dropped a knife and the patient went to catch it and caught the blade. patient with approximately 2.5cm laceration to left palm, wound appears well approximated, bleeding is well controlled at this time, patient endorsing pain when moving but CMS otherwise intact. patient states their last tetanus shot was in 2017.
--- NOTE | 2024-05-22 07:50 | ED.WOUNDLAC ---
HPI - Wound/Laceration General Chief Complaint: Wound/Laceration Stated Complaint: left hand laceration Time Seen by Provider: 05/22/24 07:38 Source: patient and family Mode of arrival: ambulatory Limitations: no limitations History of Present Illness ED Provider: RENETTA DING narrative: 24 yo female with no sig PMH here with c/o accidental L palm laceration due to knife laceration while cooking and tried to grab slipping knife. Bandage applied. No numbness or weakness. 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) Extremity Location: left: hand Place: home Patient tetanus UTD: No Context: accidental Associated symptoms: none Treatments prior to arrival: bandage Related Data Previous Rx's ?Medication ?Instructions ?Recorded levothyroxine 175 mcg tablet 175 mcg PO DAILY #60 tabs 09/24/23 cholecalciferol (vitamin D3) 50 50 mcg PO DAILY #90 tabs 05/21/24 mcg (2,000 unit) tablet Allergies Allergy/AdvReac Type Severity Reaction Status Date / Time No Known Allergies Allergy Verified 05/22/24 06:45 Review of Systems Review of Systems: Constitutional : No Fever, No Chills, Cardiovascular : No Chest Pain, No SOB Respiratory : No Dyspnea Gastrointestinal : No abdominal pain Musculoskeletal : No Joint Swelling Skin : No rash, positive skin laceration Neuro : No Weakness, No Numbness PMFSH Past Medical History Attestation statement: The following information was validated with the patient. Source: old records reviewed Medical History Graves disease Surgical History History of thyroidectomy Family History Family History Mother Hypothyroidism (acquired) Father No problems noted. Paternal Grandmother Diabetes Social History Social History Housing: Apartment Alcohol intake: current Patient Tobacco Use Status: Current someday Tobacco user Smoked in Last 30 Days: No Use of substances other than those prescribed or required for medical reasons: No Substance Use Type: Marijuana Advance Directives: No Advance Directives Information Provided: No Patient : No service: No Current occupational status: employed Cognitive needs: No Hearing needs: No Vision needs: No Physical Exam Vital Signs: Vital Signs: Last Vital Signs Temp 98.4 F 05/22/24 06:37 Pulse 96 05/22/24 06:37 Resp 18 05/22/24 06:37 BP 114/87 05/22/24 06:37 Pulse Ox 97 05/22/24 06:37 O2 Del Method Room Air 05/22/24 06:37 BMI result Body Mass Index 28.5 Appearance: Alert. Oriented X3. No acute distress. Eyes: Pupils equal, round and reactive to light. ENT: Pharynx normal. Neck: Normal inspection. Neck supple. CVS: Pulses normal. Respiratory: No respiratory distress. . Abdomen: atraumatic Skin: Skin warm and dry. Normal skin color. L palm 3cm very superficial laceration linear well approximated normal ROM of fingers and strength intact to flexion and extension good pincer grasp BCR in fall fingers 2+ radial pulse, SILT in fingers Extremities: No lower extremity edema. Neuro: Oriented X 3. No motor deficit. No sensory deficit. Medical Decision Making Medical Decision Making MDM Narrative: 24 yo female with graves disease here with accidental laceration to L palm that is very superficial at this time will use dermabond to close. Update Tdap. She is NV intact and tendon exam is intact no signs of disruption Differential Diagnosis Differential Diagnoses: The differential diagnosis associated with the presentation includes laceration, skin avulsion Independent Historian Clinical information obtained from an independent historian. History obtained from or confirmed by: Other External Record Review External record reviewed: Office record Procedures Laceration Laceration 1: Site: hand Side (If applicable): left Size (cm): 3 Description: linear Depth: simple, single layer Pre-repair: wound explored, irrigated extensively and deep structures intact Skin layer closed with: other (dermabond) Discharge Plan Discharge Clinical Impression: Laceration Patient Disposition: Home, Self-Care Instructions: Diphtheria/Acellular Pertussis/Tetanus Booster Vaccine (By injection), Laceration (ED) Additional Instructions: glue will fall off in 5 days - let it fall off do not get hand wet if possible, keep dry as much as possible can shower in 48 hours but try to keep it dry as much as possible but no pool, beach, or other types of water return for redness, swelling, yellow drainage or fevers Prescriptions: No Action levothyroxine 175 mcg tablet 175 mcg PO DAILY Qty: 60 0RF cholecalciferol (vitamin D3) 50 mcg (2,000 unit) tablet 50 mcg PO DAILY Qty: 90 0RF Print Language: [place]orese
[2024-05-22] MEDS: Diphth,Pertus(ACell),Tet Adult 0.5 ML SYRINGE IM (07:57)
[2024-05-22 08:01] VITALS: BP 114/87; PULSE 96; RESP 18; TEMP 36.9; O2SAT 97
== END 2024-05-22 08:06 | disposition home or self-care (01) ==
PROVIDERS: Emergency Provider Emergency Medicine
DX: S61.412A Laceration without foreign body of left hand, initial encounter (principal); M79.642 Pain in left hand; W26.0XXA Contact with knife, initial encounter; Y93.9 Activity, unspecified; Y92.9 Unspecified place or not applicable; Y99.8 Other external cause status; Z23 Encounter for immunization
CPT/HCPCS: 12042; 90471; 90715; 99284

== ENCOUNTER 2024-06-20 15:09 | Outpatient (AMB) | payer OTHER, SELFPAY ==
--- NOTE | 2024-06-20 15:12 | A.OFFPC_ITS ---
Vital Signs 06/20/24 15:15 Height 5 ft 3 in Weight 165 lb 4 oz BMI 29.3 BP 110/70 Blood Pressure Location Lt brachial Position Sitting Pulse 91 Pulse Source Pulse Oximeter Pulse Oximetry (%) 99 Oxygen Delivery Method Room Air Intake Visit Reasons: Hypothyroidism f/u Intake Note: Patient is here to follow up on Hypothyroidism. Hat Forming Machine Feeder Required: No Cloth Pattern Maker: Not Required per policy Accompanied by: Self / Same As Patient Allergies No Known Allergies Allergy (Verified 06/20/24 15:40) Medication List - Last Reconciled 06/20/24 by Joe Pompa MD cholecalciferol (vitamin D3) 50 mcg PO DAILY levothyroxine 175 mcg PO DAILY Tobacco use date assessed: 06/20/24 Dental Screening Dental Screen Date: 06/20/24 Did you have a dental visit in the last 12 months?: Yes Did you have a dental problem in the last 6 months where you did not have access to dental care?: No Was dental information given to patient?: Patient has dentist HPI Hypothyroidism f/u HPI Details 24-year-old female presents to [facility] to discuss her medical condition. I will be assuming her care as her provider has left the practice. Patient was diagnosed with hyperthyroidism and Graves disease in 2014. She underwent a total thyroidectomy in 2017 and is on thyroxine replacement since then. Her last TSH was checked a year ago and it was markedly elevated. Currently taking 175 mcg of levothyroxine. Patient is fully functioning and able to do all activities of daily living. 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 Reports no history of hair loss, menstrual irregularities, cold intolerance. No diarrhea. At baseline, patient feels very warm. [facility] Medical History (Updated 06/20/24 @ 15:39 by Joe Pompa MD) Graves disease Surgical History History of thyroidectomy Family History (Updated 06/20/24 @ 15:13 by WILLOW Ash) Mother Hypothyroidism (acquired) Father No problems noted. Paternal Grandmother Diabetes Social History (Updated 06/20/24 @ 15:19 by WILLOW Ash) Housing: Apartment Alcohol intake: current Patient Tobacco Use Status: Never used Tobacco e-Cigarette/Vaping Use: Never Used Second Hand Smoke Exposure: No Substance Use Type: Marijuana Substance Use Frequency Other:: Daily service: No Current occupational status: employed Cognitive needs: No Hearing needs: No Vision needs: No Questionnaire PHQ-9 Over the last 2 weeks, how often have you been bothered by any of the following problems? 1. Little interest or pleasure in doing things: not at all 2. Feeling down, depressed, or hopeless: not at all 3. Trouble falling or staying asleep, or sleeping too much: not at all 4. Feeling tired or having little energy: not at all 5. Poor appetite or overeating: not at all 6. Feeling bad about yourself - or that you are a failure or have let yourself or your family down: not at all 7. Trouble concentrating on things, such as reading the newspaper or watching television: not at all 8. Moving or speaking so slowly that other people could have noticed. Or the opposite - being so fidgety or restless that you have been moving around a lot more than usual: not at all 9. Thoughts that you would be better off or of hurting yourself in some way: not at all Total score: 0 Depression Screening Interpretation: Negative Depression Screening Done: Yes Source: Developed by Drs. Pritesh Teague, Lucila Iqbal, Dylan Ochoa and colleagues, with an educational philip from [employer]. Thrive Questionnaire Date Thrive assessed: 06/20/24 I am a: Patient What is your living situation today?: I have a steady place to live Within the past 12 months, did the food you bought not last and you didn't have the money to get more?: Never true Within the past 12 months, did you worry whether your food would run out before you got money to buy more?: Never true Do you have trouble paying for medicines?: No Do you have trouble getting transportation to medical appointments?: No Do you have trouble paying your heating and electricity bill?: No Do you have trouble taking care of your child, family member or friend?: No Do you have trouble with day-to-day activities such as bathing, preparing meals, shopping, managing finances, etc.?: No Are you currently unemployed and looking for a job?: No Are you interested in more education?: No Currently or been in a relationship where the following occur: No concerns reported THRIVE Score: 0 AUDIT C Alcohol Use Questionnaire (AUDIT-C) 1. How often do you have a drink containing alcohol?: Monthly or less Total Score: 1 MAGGIE-7 AMB Questionnaire MAGGIE-7 Date MAGGIE - 7 assessed: 06/20/24 Feeling nervous, anxious, or on edge: 0 = Not at all Not being able to stop or control worryin = Not at all Worrying too much about different things: 0 = Not at all Trouble relaxin = Not at all Being so restless that it is hard to sit still: 0 = Not at all Becoming easily annoyed or irritable: 0 = Not at all Feeling afraid as if something awful might happen: 0 = Not at all Total MAGGIE-7 score (0-4 normal; 5-9 mild; 10-14 moderate; 15-21 severe): 0 Source: Developed by Drs. Pritesh Teague, Lucila Iqbal, Dylan Ochoa and colleagues, with an educational philip from [employer]. Physical exam (Primary Care) Vital Signs: Last Vital Signs Pulse 91 06/20/24 15:15 BP 110/70 06/20/24 15:15 Pulse Ox 99 06/20/24 15:15 Oxygen Delivery Method Room Air 06/20/24 15:15 BMI result Body Mass Index 29.3 Tobacco/Smoking Status: Tobacco use Status Tobacco use date assessed 06/20/24 06/20/24 15:17 Patient Tobacco Use Status Never used Tobacco 06/20/24 15:20 Tobacco use type 06/20/24 15:20 e-Cigarette/Vaping Use Never Used 06/20/24 15:19 PHQ-9: PHQ-9 Score PHQ-9: Total score 0 06/20/24 15:17 Depression Screening Interpretation: Negative Thrive Assessment: Date of Thrive Assessment Date Thrive assessed 06/20/24 06/20/24 15:17 Currently or been in a relationship where the following occur: No concerns reported Const General: cooperative and healthy appearing Nutritional Appearance: well nourished Orientation/consciousness: patient oriented x3 Limitations: no limitations HENMT Head: Yes normal to inspection Eyes General: appearance normal, both eyes and all related structures Neck Neck: Yes normal visual inspection Chest Chest palpation & inspection: normal palpation of entire chest wall Resp Effort & Inspection: normal respiratory effort Neuro General: patient oriented x3 Assessment and Plan Assessment & Plan (1) Graves disease: Comment: Follows with endocrinology, s/p thyroidectomy 2017 Code(s): E05.00 - Thyrotoxicosis with diffuse goiter without thyrotoxic crisis or storm Plan: Blood work has been ordered. Based on the results of the TSH, levothyroxine dosage will be adjusted. 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
[2024-06-20 15:15] VITALS: BP 110/70; PULSE 91; O2SAT 99; BMI 29.3
== END 2024-06-20 15:38 | disposition home or self-care (01) ==
PROVIDERS: Visit Provider Internal Medicine
DX: E05.00 Thyrotoxicosis with diffuse goiter without thyrotoxic crisis or storm (principal)
CPT/HCPCS: 99214; G2211

== ENCOUNTER 2024-06-29 15:26 | Emergency (ER) | payer OTHER, SELFPAY ==
[2024-06-29 15:30] VITALS: BP 118/70; PULSE 91; RESP 18; TEMP 36.6; O2SAT 96; BMI 29.4
--- NOTE | 2024-06-29 15:32 | ED_ITS ---
HPI - Abdominal Pain General Chief Complaint: Nausea/Vomiting/Diarrhea Stated Complaint: nauseous/fever couple days ago Time Seen by Provider: 06/29/24 16:51 Source: patient Mode of arrival: ambulatory Limitations: no limitations History of Present Illness ED Provider: Bharat Hood PA-C HPI narrative: 24 yold female with pmh of graves disease presents to the ED nausea and vomitting since wednesday. Patient states her and her girlfriend having similar symptoms. Patient states her and girlfriend having nausea and vomiting after eating taco celeste. Patient denies any diarrhea, belly pain, chest pain, shortness of breath, weakness, dizziness, fever, chills, blood in stool, bloody urine, recent head trauma, or headache. Patient denies any photophobia or neck pain. Patient denies any rash. Patient is feeling better. Patient does came to the ED because her job wanted her to get medical note due to her missed days of work. Related Data Previous Rx's ?Medication ?Instructions ?Recorded cholecalciferol (vitamin D3) 50 50 mcg PO DAILY #90 tabs 05/21/24 mcg (2,000 unit) tablet levothyroxine 175 mcg tablet 175 mcg PO DAILY #60 tabs 06/20/24 cephalexin 500 mg capsule 500 mg PO QID 7 days #28 caps 06/29/24 ondansetron 4 mg disintegrating 4 mg PO Q8H PRN nausea and 06/29/24 tablet vomiting 2 days #6 tabs Allergies Allergy/AdvReac Type Severity Reaction Status Date / Time No Known Allergies Allergy Verified 06/29/24 15:34 Review of Systems Review of Systems Nausea vomiting Yes all other systems are reviewed and are negative [facility] Past Medical History Medical History (Updated 06/30/24 @ 00:01 by Sandy Mata) Graves disease Surgical History History of thyroidectomy Family History Family History (Updated 06/20/24 @ 15:13 by WILLOW Ash) Mother Hypothyroidism (acquired) Father No problems noted. Paternal Grandmother Diabetes Social History Social History (Updated 06/20/24 @ 15:19 by WILLOW Ash) Housing: Apartment Alcohol intake: current Patient Tobacco Use Status: Never used Tobacco e-Cigarette/Vaping Use: Never Used Second Hand Smoke Exposure: No Substance Use Type: Marijuana service: No Current occupational status: employed Cognitive needs: No Hearing needs: No Vision needs: No Physical Exam ED Vital Signs: Vital Signs - 24 hr 06/29/24 15:30 06/29/24 16:50 06/29/24 18:40 Temperature 97.8 F 96.7 F L 97.4 F Pulse Rate 91 68 73 Respiratory Rate 18 18 18 Blood Pressure 118/70 130/91 H 128/88 Pulse Oximetry 96 98 98 Oxygen Delivery Method Room Air Room Air Room Air BMI result Body Mass Index 29.4 Const Orientation/consciousness: patient oriented x3 HENMT Head: Yes normal to inspection, Yes No palpable skull fracture present, Yes normocephalic, Yes atraumatic, No abrasion, No Acrocyanosis present, No Tomas's sign, No contusion, No cranial bruits, No hematoma, No laceration, No occipital foramen tenderness, No palpable skull fracture, No raccoon eyes, No scalp lesion, No scalp tenderness, No Temporal artery tenderness present and No periorbital ecchymosis Ears: hearing grossly normal bilaterally, external ears normal, TM's normal bilaterally, TM normal on the right, TM normal on the left, EAC's normal, mastoids normal and no periauricular adenopathy Eyes General: appearance normal, both eyes and all related structures Neck Neck: Yes normal visual inspection, Yes full ROM, Yes no lymphadenopathy, Yes no meningeal signs, Yes trachea midline, Yes supple, No anterior neck swelling and No tender Chest Chest palpation & inspection: normal inspection of the chest and normal palpation of entire chest wall Resp Effort & Inspection: normal respiratory effort and able to speak in complete sentences Auscultation: clear to auscultation bilaterally Cardio Jugular venous distension: no JVD Heart sounds: S1 normal heart sound present and S2 normal heart sound present GI Inspection: Yes normal to inspection Palpation (GI): Soft to palpation, not firm, nontender, no guarding and not rigid General: No CVA tenderness and Yes no CVA tenderness Back/Spine/Pelvis Back: no CVA tenderness, No CVA tenderness and No back tenderness Skin General skin exam: no rashes or lesions noted, elasticity normal and turgor normal Neuro General: patient oriented x3, gait normal, tone normal, moves all extremities, Normal light touch and pain sensation, no meningeal signs, no focal motor deficits, CN's II-XI intact bilaterally and normal sensation to monofilament Extrem General: Yes normal to inspection, Yes full ROM and Yes capillary refill normal Psych Appearance: grossly normal, well kempt and not disheveled Course Course Course Narrative: This is a Rapid Medical Examination (RME) performed by Camelia Alfonso PA-C in triage. Full HPI, ROS, assessment and treatment plan per primary provider in the Main ED. 24 yo female here for eval of N/V and headache x2 days. admits to minimal epigastric pain with vomiting. no abd pain at present. reports gf is ill with same symptoms. they eat all the same foods. no other sick contacts. states her work is requesting note for clearance. uses marijuana daily. + holding emesis bag. no active vomiting. odor of marijuana noted. abd soft, ND/NT. Plan: labs, viral serology, UA, u preg Medical Decision Making Medical Decision Making [facility] Narrative: 24 yold female presents to the ED for medical note for nause and vomitting causing her to miss work since wednesday. Patient states presently she feels better. Patient denies any abdominal pain, dysuria, hematuria, flank pain, fever, chills, blood in stool, headache, dizziness, chest pain, shortness of breath, coughing up blood. Patient states symptoms started after eating tacos. Patient states her girlfriend also has similar symptoms. Patient denies any recent travel outside the country. Patient denies any new antibiotics. Patient will be discharged with Zofran. Not suspecting pancreatitis, gastritis, appendicitis, cholecystitis, colitis, diverticulitis, UTI, ectopic , ovarian torsion, ovarian abscess, or ovarian cyst. UA SHOWS BLOOD. PATIENT STATES SHE IS ON HER MENSTRUATION. DIRTY CATCH VERSUS UTI. PATIENT WILL BE DISCHARGED WITH ANTIBIOTICS Differential Diagnosis Differential Diagnoses: The differential diagnosis associated with the presentation includes (FOOD POISONING, GASTROENTERITIS, UTI,) Lab Data [facility] Lab Attestation statement: I reviewed the patient's lab results. 06/29/24 15:51 06/29/24 15:51 Labs: Lab Results 06/29/24 Range/Units 15:51 WBC 5.8 (4.8-10.8) X10*3/uL RBC 4.46 (4.20-5.50) X10*6/uL Hgb 14.7 (12.0-16.0) g/dl Hct 43.1 (37.0-47.0) % MCV 96.6 (80.0-98.0) fL MCH 33.0 (27.0-33.0) pg MCHC 34.1 (31.0-35.0) g/dl RDW 13.2 (11.0-16.0) % Plt Count 289 (160-400) X10*3/uL MPV 9.2 L (9.4-12.3) fL Immature Gran % (Auto) 0.3 (0.0-0.4) % Neut % (Auto) 54.3 (45-73) % Lymph % (Auto) 35.1 (20-40) % [place] % (Auto) 7.2 (2-11) % Eos % (Auto) 2.4 (0-4) % Baso % (Auto) 0.7 (0-2) % Lymph # (Auto) 2.1 (1.2-4.9) X10*3/uL [place] # (Auto) 0.4 (0.1-1.2) X10*3/uL Eos # (Auto) 0.1 (0.0-0.4) X10*3/uL Baso # (Auto) 0.0 (0.0-0.2) X10*3/uL Abs Immat Gran (auto) 0.02 (0.00-0.03) X10*3/uL Absolute Neuts (auto) 3.2 (2.0-8.3) x10*3/uL Absolute Nucleated RBC 0.000 (0.0-0.012) X10*3/uL Nucleated RBC % (auto) 0.0 (0.0-0.2) /100WBC Sodium 138 (135-145) mmol/L Potassium 3.8 (3.3-5.1) mmol/L Chloride 103 (96-108) mmol/L Carbon Dioxide 28 (22-29) mmol/L Anion Gap 11 L (12-20) BUN 9 (9-16) mg/dL Creatinine 0.87 (0.5-1.4) mg/dL Estim Creat Clear Calc 97.7 Estimated GFR > 60 Random Glucose 83 (60-115) mg/dL Calcium 9.6 (8.4-10.2) mg/dL Magnesium 2.1 (1.6-2.6) mg/dL Total Bilirubin 0.4 (0.0-1.0) mg/dL AST 23 (5-31) U/L ALT 15 (0-31) U/L Alkaline Phosphatase 50 (39-117) U/L Total Protein 8.0 (6.5-8.0) g/dL Albumin 4.6 (3.5-5.0) g/dL Lipase 10 (8-78) U/L Urine Color Yellow Urine Appearance Clear Urine pH 7.0 (5.0-9.0) Ur Specific [place] 1.010 (1.005-1.025) Urine Protein Negative (Neg-Trace) mg/dL Urine Glucose (UA) Negative (Negative) mg/dL Urine Ketones Negative (Negative) mg/dL Urine Blood Large (3+) H (Negative) Urine Nitrite Negative (Negative) Ur Leukocyte Esterase Trace H (Negative) Urine RBC 3-5 H (0-2) /HPF Urine WBC 0-5 (0-5) /HPF Ur Squamous Epith Cells 3-5 (0-2) /HPF Urine Bacteria 1+ (None Seen) Hyaline Casts 0-2 (0-2) /LPF Urine Test NEGATIVE (NEGATIVE) Influenza Type A (PCR) NEGATIVE (Negative) Influenza Type B (PCR) NEGATIVE (Negative) RSV RNA Qual (PCR) NEGATIVE (Negative) SARS-CoV-2 RNA (RT-PCR) NEGATIVE (Negative) Independent Historian Clinical information obtained from an independent historian. History obtained from or confirmed by: Other (PATIENT) External Record Review External record reviewed: Other (pRIOR VISTS) Prescription Management I considered prescription management with: Antibiotic (ANTIOBITICS) and Other (ZOFRAN) Discharge Plan Discharge Clinical Impression: Nausea & vomiting, Gastroenteritis, UTI (urinary tract infection) Patient Disposition: Home, Self-Care Instructions: Urinary Tract Infection in Women (ED), Gastroenteritis (ED), Acute Nausea and Vomiting (ED) Additional Instructions: RECOMMEND FOLLOW-UP WITH PRIMARY CARE PROVIDER. RETURN TO THE ED IMMEDIATELY FOR ANY ABDOMINAL PAIN, INABILITY TO TOLERATE SOLID FOOD/LIQUID, INTRACTABLE VOMITING, FEVER, CHILLS, HEADACHE, NECK STIFFNESS, BLURRY VISION, FLANK PAIN, BLOOD IN URINE, BLOOD IN STOOL, DYSURIA, OR ANY OTHER CONCERNING SYMPTOMS. Recommend BRAT ( Bananna, rice, apple suace, and toast) Prescriptions: New ondansetron 4 mg tablet,disintegrating 4 mg PO Q8H PRN (Reason: nausea and vomiting) 2 Days Qty: 6 0RF cephalexin 500 mg capsule 500 mg PO QID 7 Days Qty: 28 0RF No Action cholecalciferol (vitamin D3) 50 mcg (2,000 unit) tablet 50 mcg PO DAILY Qty: 90 0RF levothyroxine 175 mcg tablet 175 mcg PO DAILY Qty: 60 0RF Stand Alone Forms: Work/School Release Interventions: ED Discharge Assessment Last Done: 06/29/24 18:40 Discharge Date/Time: 06/29/24 18:40 Print Language: Fijian
[2024-06-29 16:05] LABS: MANUAL DIFF FLAG NO
[2024-06-29 16:08] LABS: Basophils Percent Auto 0.7 % (0-2); Eosinophils Absolute Auto 0.1 X10*3/uL (0.0-0.4); Eosinophils Percent Auto 2.4 % (0-4); Hematocrit 43.1 % (37.0-47.0); Hemoglobin 14.7 g/dl (12.0-16.0); Imm Gran Abs Auto 0.02 X10*3/uL (0.00-0.03); Imm Gran Pct Auto 0.3 % (0.0-0.4); Lymphocytes Absolute Auto 2.1 X10*3/uL (1.2-4.9); Lymphocytes Percent Auto 35.1 % (20-40); Mean Corpuscular HGB Conc 34.1 g/dl (31.0-35.0); Mean Corpuscular Volume 96.6 fL (80.0-98.0); Mean Platelet Volume 9.2 fL (9.4-12.3); Monocytes Absolute Auto 0.4 X10*3/uL (0.1-1.2); Monocytes Percent Auto 7.2 % (2-11); Neutrophils Absolute Auto 3.2 x10*3/uL (2.0-8.3); Neutrophils Percent Auto 54.3 % (45-73); Platelet Count 289 X10*3/uL (160-400); Red Blood Count 4.46 X10*6/uL (4.20-5.50); Red Cell Distribution Width 13.2 % (11.0-16.0); White Blood Count 5.8 X10*3/uL (4.8-10.8)
[2024-06-29 16:12] LABS: Appearance Urine Clear; Color Urine Yellow; Glucose Urine UA Negative (Negative); Leukocyte Esterase Urine Trace (Negative); Nitrite Urine Negative (Negative); UMIC TRIGGER UACC YES; Urine Blood Large (3+) (Negative); Urine Ketones Negative (Negative); Urine Protein Negative (Neg-Trace)
[2024-06-29 16:16] LABS: UPreg QC Valid YES; Urine Pregnancy NEGATIVE (NEGATIVE)
[2024-06-29 16:22] LABS: Alanine Aminotransferase 15 U/L (0-31); Albumin Level 4.6 g/dL (3.5-5.0); Alkaline Phosphatase 50 U/L (39-117); Anion Gap 11 (12-20); Aspartate Amino Transferase 23 U/L (5-31); Bilirubin Total 0.4 mg/dL (0.0-1.0); Blood Urea Nitrogen 9 mg/dL (9-16); Calcium 9.6 mg/dL (8.4-10.2); Carbon Dioxide 28 mmol/L (22-29); Chloride 103 mmol/L (96-108); Creatinine Clr Calc Pharmacy 97.7; Estimated Glomerular Filt Rate > 60; Glucose Random 83 mg/dL (60-115); Lipase 10 U/L (8-78); Magnesium 2.1 mg/dL (1.6-2.6); Potassium 3.8 mmol/L (3.3-5.1); Sodium 138 mmol/L (135-145)
[2024-06-29 16:27] LABS: Bacteria Urine 1+ (None Seen); Hyaline Casts Urine 0-2 /LPF (0-2); WBC Urine 0-5 /HPF (0-5)
[2024-06-29 16:50] VITALS: BP 130/91; PULSE 68; RESP 18; TEMP 35.9; O2SAT 98
[2024-06-29 17:00] LABS: Influenza A PCR NEGATIVE (Negative); Influenza B PCR NEGATIVE (Negative); Resp Syncy Virus RNA Qual PCR NEGATIVE (Negative); SARS COV2 PCR INHOUSE NEGATIVE (Negative)
--- NOTE | 2024-06-29 17:00 | PC.NURSE ---
pt a&ox3, vss, urine and labs previously obtained, pt waiting on results/provider, will continue to monitor
[2024-06-29 18:40] VITALS: BP 128/88; PULSE 73; RESP 18; TEMP 36.3; O2SAT 98
== END 2024-06-29 18:40 | disposition home or self-care (01) ==
PROVIDERS: Physician Assistant Medical; Emergency Provider Student in an Organized Health Care Education/Training Program
DX: N39.0 Urinary tract infection, site not specified (principal); K52.9 Noninfective gastroenteritis and colitis, unspecified; R11.2 Nausea with vomiting, unspecified; Z03.818 Encounter for observation for suspected exposure to other biological agents ruled out
CPT/HCPCS: 0241U; 80053; 81001; 81025; 83690; 83735; 85025; 99283

== ENCOUNTER 2024-07-26 22:17 | Emergency (ER) | payer OTHER, SELFPAY ==
--- NOTE | 2024-07-26 | ECG_ITS ---
Test Reason : CP Blood Pressure : / mmHG Vent. Rate : 082 BPM Atrial Rate : 082 BPM P-R Int : 194 ms QRS Dur : 084 ms QT Int : 382 ms P-R-T Axes : 033 033 034 degrees QTc Int : 446 ms Normal sinus rhythm Normal ECG When compared with ECG of 10-JUN-2022 11:42, No significant change was found Referred By: Generic ED Physician Electronically Signed By:CONSTANTINO LARSON
--- NOTE | ~2024-07-26 | XR_ITS ---
EXAMINATION: XR CHEST, 2 VIEWS CLINICAL INFORMATION: Chest pain. Shortness of breath. COMPARISON: 05/19/2024 TECHNIQUE: PA and lateral views of the chest were obtained. FINDINGS: Cardiac silhouette is at the upper limits of normal in size. There is mild bronchial wall thickening in the perihilar regions. No consolidation, pneumothorax, or pleural effusion. Mediastinal contour is normal. Pulmonary vasculature is unremarkable. Trachea is midline. Osseous structures are unremarkable. XR/XR chest 2V IMPRESSION: Mild bronchial wall thickening can be seen with a small airways process such as asthma or atypical/viral infection. No focal consolidation. Electronically signed by: Demetrio Bo MD 07/27/2024 12:05 AM EDT RP
[2024-07-26 22:31] VITALS: BP 138/101; PULSE 86; RESP 18; TEMP 36.4; O2SAT 99; BMI 28.9
[2024-07-26 23:19] LABS: Hematocrit 41.5 % (37.0-47.0); Hemoglobin 14.2 g/dl (12.0-16.0); Mean Corpuscular HGB Conc 34.2 g/dl (31.0-35.0); Mean Corpuscular Hemoglobin 32.6 pg (27.0-33.0); Mean Corpuscular Volume 95.2 fL (80.0-98.0); Mean Platelet Volume 9.3 fL (9.4-12.3); Platelet Count 272 X10*3/uL (160-400); Red Blood Count 4.36 X10*6/uL (4.20-5.50); White Blood Count 7.3 X10*3/uL (4.8-10.8)
[2024-07-26 23:34] LABS: Alanine Aminotransferase 20 U/L (0-31); Albumin Level 4.6 g/dL (3.5-5.0); Alkaline Phosphatase 61 U/L (39-117); Anion Gap 11 (12-20); Aspartate Amino Transferase 31 U/L (5-31); Bilirubin Total 0.3 mg/dL (0.0-1.0); Blood Urea Nitrogen 13 mg/dL (9-16); Calcium 9.7 mg/dL (8.4-10.2); Carbon Dioxide 27 mmol/L (22-29); Chloride 106 mmol/L (96-108); Creatinine Clr Calc Pharmacy 81.8; Estimated Glomerular Filt Rate > 60; Glucose Random 117 mg/dL (60-115); Potassium 3.6 mmol/L (3.3-5.1); Sodium 140 mmol/L (135-145)
[2024-07-26 23:44] LABS: Troponin-I High Sensitivity < 2.7 ng/L (<3.5-17.0)
[2024-07-26 23:56] LABS: Influenza A PCR NEGATIVE (Negative); Influenza B PCR NEGATIVE (Negative); Resp Syncy Virus RNA Qual PCR NEGATIVE (Negative); SARS COV2 PCR INHOUSE NEGATIVE (Negative)
== END 2024-07-27 02:56 | disposition left against medical advice (07) ==
LOC: HO.ED 07-27 02:53
PROVIDERS: Emergency Provider Emergency Medicine
DX: R07.89 Other chest pain (principal); Z03.818 Encounter for observation for suspected exposure to other biological agents ruled out; Z79.899 Other long term (current) drug therapy
CPT/HCPCS: 0241U; 71046; 80053; 84484; 85027; 93005; 99281; 99283

== ENCOUNTER 2024-09-12 09:17 | Outpatient (AMB) | payer OTHER, SELFPAY ==
[2024-09-12 09:22] VITALS: BP 118/98; PULSE 87; O2SAT 98; BMI 29.8
--- NOTE | 2024-09-12 09:22 | MHC.PC.OV ---
Vital Signs 09/12/24 09:22 Height 5 ft 3 in Weight 168 lb BMI 29.8 BP 118/98 H Blood Pressure Location Lt brachial Position Sitting Pulse 87 Pulse Source Pulse Oximeter Pulse Oximetry (%) 98 Oxygen Delivery Method Room Air Intake Visit Reasons: annual Intake Note: Patient is here today for a physical. Night Shift Manager Required: No Accompanied by: Self / Same As Patient Allergies No Known Allergies Allergy (Verified 09/12/24 09:32) Medication List - Last Reconciled 09/12/24 by Tiffanie Man MD cholecalciferol (vitamin D3) 50 mcg PO DAILY levothyroxine 175 mcg PO DAILY Tobacco use date assessed: 06/20/24 Dental Screening Dental Screen Date: 06/20/24 HPI HPI Comments History of Present Illness Details This is a 24-year-old female that comes for her physical exam. Has not had a Pap smear and will be referred to OBGYN for that matter. Complains of blurry vision and would like to see Ophthalmology. Also has occasional dyspnea on exertion and went to ER few months ago due to this matter. Will be referred to pulmonology. [facility] Medical History (Updated 09/12/24 @ 10:25 by Tiffanie Man MD) Graves disease Surgical History History of thyroidectomy Family History Mother Hypothyroidism (acquired) Father No problems noted. Paternal Grandmother Diabetes Social History (Updated 09/12/24 @ 09:38 by Tiffanie Man MD) Housing: Apartment Alcohol intake: current Alcohol intake frequency: a few times a month Alcohol type: beer Patient Tobacco Use Status: Never used Tobacco e-Cigarette/Vaping Use: Never Used Second Hand Smoke Exposure: No Substance Use Type: Marijuana service: No Current occupational status: employed Cognitive needs: No Hearing needs: No Vision needs: No Questionnaire PHQ-9 Over the last 2 weeks, how often have you been bothered by any of the following problems? 1. Little interest or pleasure in doing things: not at all 2. Feeling down, depressed, or hopeless: not at all 3. Trouble falling or staying asleep, or sleeping too much: not at all 4. Feeling tired or having little energy: not at all 5. Poor appetite or overeating: not at all 6. Feeling bad about yourself - or that you are a failure or have let yourself or your family down: not at all 7. Trouble concentrating on things, such as reading the newspaper or watching television: not at all 8. Moving or speaking so slowly that other people could have noticed. Or the opposite - being so fidgety or restless that you have been moving around a lot more than usual: not at all 9. Thoughts that you would be better off or of hurting yourself in some way: not at all Total score: 0 Depression Screening Interpretation: Negative Depression Screening Done: Yes 72346 - PHQ-9 Billing: Yes Source: Developed by Drs. Pritesh Teague, Lucila Iqbal, Dylan Ochoa and colleagues, with an educational philip from [employer]. Thrive Questionnaire Date Thrive assessed: 09/12/24 I am a: Patient What is your living situation today?: I have a steady place to live Within the past 12 months, did the food you bought not last and you didn't have the money to get more?: Never true Within the past 12 months, did you worry whether your food would run out before you got money to buy more?: Never true Do you have trouble paying for medicines?: No Do you have trouble getting transportation to medical appointments?: No Do you have trouble paying your heating and electricity bill?: No Do you have trouble taking care of your child, family member or friend?: No Do you have trouble with day-to-day activities such as bathing, preparing meals, shopping, managing finances, etc.?: No Are you currently unemployed and looking for a job?: No Are you interested in more education?: No Please select the resources that you would like help with: None Currently or been in a relationship where the following occur: No concerns reported THRIVE Score: 0 AUDIT C Alcohol Use Questionnaire (AUDIT-C) 1. How often do you have a drink containing alcohol?: 2-4 times a month 2. How many drinks containing alcohol do you have on a typical day when you are drinking?: 3 or 4 3. How often do you have six or more drinks on one occasion?: Never Total Score: 3 Score Reviewed/Action Taken: No MAGGIE-7 AMB Questionnaire MAGGIE-7 Date MAGGIE - 7 assessed: 09/12/24 Feeling nervous, anxious, or on edge: 0 = Not at all Not being able to stop or control worryin = Not at all Worrying too much about different things: 0 = Not at all Trouble relaxin = Not at all Being so restless that it is hard to sit still: 0 = Not at all Becoming easily annoyed or irritable: 3 = Nearly every day Feeling afraid as if something awful might happen: 0 = Not at all Total MAGGIE-7 score (0-4 normal; 5-9 mild; 10-14 moderate; 15-21 severe): 3 Source: Developed by Drs. Pritesh Teague, Lucila Iqbal, Dylan Ochoa and colleagues, with an educational philip from [employer]. MAGGIE-7 Assessment Billing MAGGIE-7 Assessment Tool: MAGGIE-7 Assessment 31674 Review of Systems Const All systems reviewed & are unremarkable except as noted in HPI and below Eyes Reports blurry vision Card Denies chest pain at rest, Denies chest pain with activity, Denies edema, Denies irregular heart rhythm, Denies claudication, Denies dyspnea, Reports dyspnea on exertion, Denies orthopnea, Denies paroxysmal nocturnal dyspnea and Denies slow heart rate Resp Denies cough, Denies dyspnea and Reports dyspnea on exertion Musc Denies atrophy, Denies deformity and Denies limited range of motion Physical exam (Primary Care) Vital Signs: Last Vital Signs Pulse 87 09/12/24 09:22 BP 118/98 H 09/12/24 09:22 Pulse Ox 98 09/12/24 09:22 Oxygen Delivery Method Room Air 09/12/24 09:22 BMI result Body Mass Index 29.8 BMI Assessment/Plan discussion: High BMI High, discussed plan: lifestyle, weight reduction, dietary, physical activity and alcohol moderation Tobacco/Smoking Status: Tobacco use Status Tobacco use date assessed 06/20/24 09/12/24 09:28 Patient Tobacco Use Status Never used Tobacco 09/12/24 09:38 Tobacco use type 06/29/24 15:26 e-Cigarette/Vaping Use Never Used 09/12/24 09:38 PHQ-9: PHQ-9 Score PHQ-9: Total score 0 10/15/24 09:36 Depression Screening Interpretation: Negative Thrive Assessment: Date of Thrive Assessment Date Thrive assessed 09/12/24 09/12/24 09:28 Currently or been in a relationship where the following occur: No concerns reported [facility] Head: Yes normal to inspection, Yes normocephalic and Yes atraumatic Ears: external ears normal Eyes General: appearance normal, both eyes and all related structures Eyelids: Yes eyelids normal Conjunctivae: conjunctivae normal Neck Neck: Yes normal visual inspection and Yes supple Resp Effort & Inspection: normal respiratory effort Auscultation: clear to auscultation bilaterally Cardio Jugular venous distension: no JVD Rate: regular rate Rhythm: regular rhythm Heart sounds: S1 normal heart sound present and S2 normal heart sound present GI Inspection: Yes normal to inspection Palpation (GI): Soft to palpation and nontender Auscultation: normal bowel sounds Skin General skin exam: no rashes or lesions noted Neuro General: no focal motor deficits Extrem General: Yes full ROM Psych Appearance: grossly normal Office Procedures Flu Questionnaire Does the patient have a severe egg allergy?: No Does the patient have severe life threatening allergies?: No Does the patient have a fever or illness today?: No Has the patient ever had Guillain-[place] Syndrome?: No Has the patient ever had any past reaction to a flu shot?: No Immunizations Fluarix Triv [id number] (PF) 45 mcg (15 mcg x 3)/0.5 mL IM syringe Performing Provider: Tiffanie Man MD [place] [facility] [place] [facility] Administered by: UZAIR Al on 09/12/24 09:31 Dose Route Admin Location Dispensed Lot Number Expiration Date [facility] Animal Pathology Teacher 0.5 mL IM Right Deltoid 0.5 mL [id number] 05/28/25 [id number] [employer] VIS Given Date VIS Provided VIS Publication Date 09/12/24 Single Vaccine 21 Eligibility Eligibility Date Funding Source Not [facility] Eligible 09/12/24 Private Coding Level of Care Code Est Pt Level 3 (76130) Est Pt Prev Care 18-39y(66221) Diagnoses Adult general medical exam Z00.00 Blurry vision H53.8 Dyspnea on exertion R06.09 Additional Codes MAGGIE-7 Assessment Billing - MAGGIE-7 Assessment Tool: MAGGIE-7 Assessment 29337 ([id number]) Time Spent (min) 35 Assessment & Plan Assessment & Plan (1) Adult general medical exam: Comment: Tetanus IZ 2017 per pt. Code(s): Z00.00 - Encounter for general adult medical examination without abnormal findings Category: Medical Plan: Repeat in a year. (2) Blurry vision: Code(s): H53.8 - Other visual disturbances Category: Medical Plan: Referred to Ophthalmology. (3) Dyspnea on exertion: Code(s): R06.09 - Other forms of dyspnea Category: Medical Plan: Referred to pulmonology. Orders: Orders Influenza [id number] Immunization Today Z23 - Encounter for immunization Vitamin D 25-OH Total Today E55.9 - Vitamin D deficiency, unspecified Lipid Panel Today E78.5 - Hyperlipidemia, unspecified Thyroid Stimulating Hormone Today R79.89 - Other specified abnormal findings of blood chemistry Comprehensive Arvin. Panel Fast Today Z00.00 - Encounter for general adult medical examination without abnormal findings Referrals Pulmonology Referral R06.09 - Other forms of dyspnea Ophthalmology Referral H53.8 - Other visual disturbances CHIEF MECHANICAL ENGINEER Referral Z12.4 - Encounter for screening for malignant neoplasm of cervix
== END 2024-09-12 09:47 | disposition home or self-care (01) ==
PROVIDERS: PCP Internal Medicine; Visit Provider Internal Medicine
DX: Z00.00 Encounter for general adult medical examination without abnormal findings (principal); H53.8 Other visual disturbances; R06.09 Other forms of dyspnea

== ENCOUNTER → 2024-09-12 09:17 | Outpatient (BNVA) | payer OTHER, SELFPAY | PROVIDERS: PCP Internal Medicine; Visit Provider Internal Medicine | DX: Z00.01 Encounter for general adult medical examination with abnormal findings (principal); H53.8 Other visual disturbances; R06.09 Other forms of dyspnea | CPT/HCPCS: 90471; 90656; 96127; 99395 ==

== ENCOUNTER 2024-09-27 14:37 | Outpatient (AMB) | payer OTHER, SELFPAY ==
[2024-09-27 14:39] VITALS: BP 118/64; PULSE 111; O2SAT 98; BMI 29.8
--- NOTE | 2024-09-27 14:39 | MHC.OFFVIS ---
Vital Signs 09/27/24 14:39 Height 5 ft 3 in Weight 168 lb BMI 29.8 BP 118/64 Blood Pressure Location Rt brachial Position Sitting Pulse 111 H Pulse Oximetry (%) 98 Oxygen Delivery Method Room Air Intake Visit Reasons: dyspnea Sales Service Executive Required: No Panel Machine Setter: Panel Machine Setter offered & declined Accompanied by: Self / Same As Patient Allergies No Known Allergies Allergy (Verified 09/27/24 14:45) Medication List - Last Reconciled 09/27/24 by Akua Warner LPN cholecalciferol (vitamin D3) 50 mcg PO DAILY levothyroxine 175 mcg PO DAILY HPI HPI dyspnea: Details: Kelly is a pleasant 24-year-old female, never tobacco smoker occasional marijuana, with underlying Grave's disease s/p thyroidectomy. She was referred by PCP for pulmonary evaluation. She reports over the last 6 months has noticed more dyspnea on exertion, occasionally at rest, with associated chest tightness. She notes that she had exposure to someone with pertussis and developed a significant cough that lasts for 3 months post exposure. She denies any testing for pertussis or treatment. She reports cough has resolved denies any wheezing. She denies any history of asthma. She reports multiple family members with asthma. She denies any known seasonal allergies, she does have 2 cats and 2 dogs at home. She denies any recent allergy testing. She denies any active patient exposures. She did have a chest x-ray in June which revealed mild bronchial thickening suggestive of an infectious process versus is small airways disease such as asthma. She denies any PFT. She has previously trialed a family member's albuterol inhaler with good effect. [facility] Medical History Graves disease Surgical History History of thyroidectomy Family History Mother Hypothyroidism (acquired) Father No problems noted. Paternal Grandmother Diabetes Social History (Updated 09/27/24 @ 14:48 by Akua Warner LPN) Housing: Apartment Alcohol intake: current Alcohol intake frequency: a few times a month Alcohol type: beer Patient Tobacco Use Status: Never used Tobacco e-Cigarette/Vaping Use: Never Used Second Hand Smoke Exposure: No Substance Use Type: Marijuana service: No Current occupational status: employed Cognitive needs: No Hearing needs: No Vision needs: No Review of Systems Const Denies chills, Denies excessive sweating, Denies fever(s), Denies headache(s) and Denies night sweats Eyes Denies dry eyes, Denies irritation and Denies itchy eyes ENT Reports Normal hearing present, Denies headache(s), Denies nasal congestion, Denies nasal discharge, Denies post nasal drip and Denies sore throat Card Denies chest pain, Denies chest pain at rest, Denies chest pain with activity, Denies claudication, Denies leg edema, Denies orthopnea and Denies paroxysmal nocturnal dyspnea Resp Denies chest congestion, Denies cough, Denies excessive phlegm production, Denies pain on inspiration, Denies pain with cough, Denies stridor and Denies wheezing Musc Denies myalgias Neuro Reports Normal hearing present and Denies headache(s) Endo Denies excessive sweating Nikolay/Lymph Denies lymphadenopathy Aller/Immun Denies itchy eyes, Denies seasonal rhinorrhea and Denies wheezing Physical Exam Vital Signs: Last Vital Signs Pulse 111 H 09/27/24 14:39 BP 118/64 09/27/24 14:39 Pulse Ox 98 09/27/24 14:39 Oxygen Delivery Method Room Air 09/27/24 14:39 BMI result Body Mass Index 29.8 Const General: cooperative, healthy appearing, comfortable, no acute distress, well developed and alert Orientation/consciousness: patient oriented x3 Limitations: no limitations HEENT Head: Yes normal to inspection, Yes normocephalic and Yes atraumatic Ears: hearing grossly normal bilaterally and external ears normal Eyes General: appearance normal, both eyes and all related structures Eyelids: Yes eyelids normal Sclerae: sclerae normal EOM: EOMs intact bilaterally Neck Neck: Yes normal visual inspection and Yes no lymphadenopathy Lymphatic: no lymphadenopathy noted Chest Chest palpation & inspection: normal inspection of the chest Resp Effort & Inspection: normal respiratory effort, able to speak in complete sentences, no audible wheezes, no cough, no stridor, not tachypneic, no tripod positioning and no use of accessory muscles Auscultation: clear to auscultation bilaterally Cardio Jugular venous distension: no JVD Rate: regular rate Rhythm: regular rhythm Skin Other: warm, dry General skin exam: no rashes or lesions noted Neuro General: patient oriented x3 Cranial nerves: Yes Normal hearing present Cognition (Neuro): normal cognition Gait exam (Neuro): Normal gait present Extrem General: Yes normal to inspection, Yes capillary refill normal, Yes no clubbing, cyanosis or edema and Yes no pedal edema Psych Appearance: grossly normal and well kempt Speech and movement: Normal speech and movement present and Clear speech present Affect: normal affect Attitude: cooperative Thought process: Normal thought process present Thought content: Normal thought content present Insight: Good insight present (Psych) Judgement: Good judgement present (Psych) Assessment & Plan Assessment & Plan (1) Dyspnea on exertion: Code(s): R06.09 - Other forms of dyspnea Category: Medical (2) Environmental allergies: Code(s): Z91.09 - Other allergy status, other than to drugs and biological substances Category: Medical Plan Zorely's symptoms are likely related to underlying asthma with possible allergic component. Will send for PFT and rest. Will empirically trial with albuterol p.r.n.. All questions were answered and patient is in agreement plan. Will follow-up to review results and response to inhaler sooner if needed. Orders: Orders Complete Blood Count Auto Diff Today Z91.09 - Other allergy status, other than to drugs and biological substances Immunoglobulin E Today Z91.09 - Other allergy status, other than to drugs and biological substances PFT pulmonary function test Today R06.09 - Other forms of dyspnea Resp Allergy Profile Region I Today Z91.09 - Other allergy status, other than to drugs and biological substances Medications: New albuterol sulfate 90 mcg/actuation 2 puffs inhalation Q4-6H PRN 1 ea 0RF shortness of breath or wheezing Coding Level of Care Code New Pt Level 3 (06482) Diagnoses Dyspnea on exertion R06.09 Environmental allergies Z91.09
== END 2024-09-27 15:13 | disposition home or self-care (01) ==
LOC: HO.HPSW 14:38
PROVIDERS: PCP Internal Medicine; Referring Provider Internal Medicine; Visit Provider Nurse Practitioner Family
DX: R06.09 Other forms of dyspnea (principal); Z91.09 Other allergy status, other than to drugs and biological substances
CPT/HCPCS: 99203

== ENCOUNTER → 2024-09-27 14:37 | Outpatient (BNVA) | payer OTHER, SELFPAY | PROVIDERS: PCP Internal Medicine; Referring Provider Internal Medicine; Visit Provider Nurse Practitioner Family | DX: R06.09 Other forms of dyspnea (principal); Z91.09 Other allergy status, other than to drugs and biological substances | CPT/HCPCS: 99202 ==

== ENCOUNTER 2024-09-27 15:17 | Outpatient (REF) | payer OTHER, SELFPAY ==
[2024-09-27 17:49] LABS: MANUAL DIFF FLAG NO
[2024-09-27 17:59] LABS: Appearance Urine Clear; Color Urine Yellow; Glucose Urine UA Negative (Negative); Leukocyte Esterase Urine Negative (Negative); Nitrite Urine Negative (Negative); Urine Blood Negative (Negative); Urine Ketones Negative (Negative); Urine Protein Negative (Neg-Trace)
[2024-09-27 18:14] LABS: Alanine Aminotransferase 25 U/L (0-31); Alkaline Phosphatase 55 U/L (39-117); Anion Gap 13 (12-20); Aspartate Amino Transferase 33 U/L (5-31); Basophils Absolute Auto 0.1 X10*3/uL (0.0-0.2); Basophils Percent Auto 0.6 % (0-2); Bilirubin Direct 0.2 mg/dL (0.0-0.5); Bilirubin Total 0.6 mg/dL (0.0-1.0); Blood Urea Nitrogen 10 mg/dL (9-16); Calcium 9.4 mg/dL (8.4-10.2); Carbon Dioxide 28 mmol/L (22-29); Chloride 102 mmol/L (96-108); Cholesterol 218 mg/dL (<200); Eosinophils Absolute Auto 0.1 X10*3/uL (0.0-0.4); Estimated Glomerular Filt Rate 60; Glucose Fasting 83 mg/dL (60-99); Glucose Random 84 mg/dL (60-115); HDL Cholesterol 62 mg/dL (>40); Hemoglobin 14.1 g/dl (12.0-16.0); Imm Gran Abs Auto 0.02 X10*3/uL (0.00-0.03); Imm Gran Pct Auto 0.3 % (0.0-0.4); LDL Cholesterol Calculated 137 mg/dL (<100); Lymphocytes Absolute Auto 2.5 X10*3/uL (1.2-4.9); Lymphocytes Percent Auto 32.1 % (20-40); Mean Corpuscular HGB Conc 34.4 g/dl (31.0-35.0); Mean Corpuscular Hemoglobin 32.6 pg (27.0-33.0); Mean Corpuscular Volume 94.7 fL (80.0-98.0); Mean Platelet Volume 10.5 fL (9.4-12.3); Monocytes Absolute Auto 0.5 X10*3/uL (0.1-1.2); Monocytes Percent Auto 6.6 % (2-11); Neutrophils Absolute Auto 4.6 x10*3/uL (2.0-8.3); Neutrophils Percent Auto 59.4 % (45-73); Platelet Count 250 X10*3/uL (160-400); Potassium 3.6 mmol/L (3.3-5.1); Red Blood Count 4.33 X10*6/uL (4.20-5.50); Red Cell Distribution Width 13.6 % (11.0-16.0); Sodium 139 mmol/L (135-145); Total Protein 8.6 g/dL (6.5-8.0); Triglycerides 98 mg/dL (<150); White Blood Count 7.7 X10*3/uL (4.8-10.8)
[2024-09-27 18:29] LABS: Vitamin D 25-OH Total 28.3 ng/mL (>30)
[2024-09-27 18:34] LABS: Thyroid Stimulating Hormone > 100.00 uIU/mL (0.32-4.0)
[2024-09-28 22:53] LABS: Class Alternaria alternata 0; Class Aspergillus fumigatus 0; Class Bermuda Grass 0; Class Birch 0; Class Cat Dander 0; Class Cladosporium herbarum 0; Class Cockroach 0; Class Common Ragweed 0; Class Cottonwood 0; Class Derm. pterony 0; Class Dermatophagoides farinae 0; Class Dog Dander 0; Class Elm 0; Class Maple Box Elder 0; Class Mountain Cedar 0; Class Mouse Urine Protein 0; Class Mugwort 0; Class Oak 0; Class Penicillium crysogenum 0; Class Rough Pigweed 0; Class Sheep Sorrel 0; Class Sycamore 0; Class Timothy Grass 0; Class Walnut Tree 0; Class White Ash 0; Class White Mulberry 0; D001 IgE D pteronyssinus <0.10 kU/L; D002 - IgE D farinae <0.10 kU/L; E001 - IgE Cat Dander <0.10 kU/L; E005 - IgE Dog Dander <0.10 kU/L; E072-IgE Mouse Urine <0.10 kU/L; G002 IgE Bermuda Grass <0.10 kU/L; G006 - IgE Timothy Grass <0.10 kU/L; I006-IgE Cockroach, German <0.10 kU/L; Immunoglobulin E 105 kU/L (<OR=114); M001 IgE Penicillium chrysogen <0.10 kU/L; M002 - IgE Cladosporium herbar <0.10 kU/L; M003 - IgE Aspergillus fumigat <0.10 kU/L; M006 - IgE Alternaria alternat <0.10 kU/L; T001 IgE Maple/Box Elder <0.10 kU/L; T003 IgE Common Silver Birch <0.10 kU/L; T006 - IgE Cedar, Mountain <0.10 kU/L; T007 - IgE Oak, White <0.10 kU/L; T008 IgE Elm, American <0.10 kU/L; T010 - IgE Walnut <0.10 kU/L; T011 - IgE Maple Leaf Sycamore <0.10 kU/L; T014 - IgE Cottonwood <0.10 kU/L; T015 - IgE Ash, White <0.10 kU/L; T070 - IgE White Mulberry <0.10 kU/L; W001 - IgE Ragweed, Short <0.10 kU/L; W006 - IgE Mugwort <0.10 kU/L; W014 IgE Pigweed, Common <0.10 kU/L; W018 IgE Sheep Sorrel <0.10 kU/L
== END 2024-09-27 15:18 | disposition home or self-care (01) ==
LOC: HO.WFDLDS 15:17
PROVIDERS: Internal Medicine; Referring Provider Nurse Practitioner Family; Visit Provider Internal Medicine
DX: Z00.00 Encounter for general adult medical examination without abnormal findings (principal); Z91.09 Other allergy status, other than to drugs and biological substances; E55.9 Vitamin D deficiency, unspecified; E05.00 Thyrotoxicosis with diffuse goiter without thyrotoxic crisis or storm
CPT/HCPCS: 36415; 80048; 80053; 80061; 80076; 81003; 82248; 82306; 82785; 84443; 85025; 85027; 86003

== ENCOUNTER 2025-06-11 10:28 | Outpatient (AMB) | payer MEDICAID, SELFPAY ==
[2025-06-11 10:49] VITALS: BP 104/60; PULSE 72; TEMP 36.7; O2SAT 99; BMI 32.8
--- NOTE | 2025-06-11 10:49 | MHC.OFFWIV ---
Intake Vital Signs 06/11/25 10:49 Height 5 ft 3 in Weight 185 lb BMI 32.8 BP 104/60 Blood Pressure Location Lt brachial Position Sitting Pulse 72 Pulse Source Pulse Oximeter Temp 98.0 F Temp Source Oral Pulse Oximetry (%) 99 Oxygen Delivery Method Room Air Intake Visit Reasons: EP Lump on RT side, growing Intake Note: presents with lump on right upper abdomen for 4 months, enlarging and painful Patient Tobacco Use Status: Never used Tobacco Allergies No Known Allergies Allergy (Verified 06/11/25 10:51) Do you need a note to return to daycare/school/sports/work: Yes Return to daycare/school/sports/work/other note: work HPI HPI Comments History of Present Illness Details History Patient is a 25-year-old female with a past medical history of hypothyroidism status post thyroidectomy complaining of a uncomfortable lump in her right upper quadrant. She tells me it has been there for 3-4 months and was initially painless but over the last 2 weeks it has grown quite a bit and become constant discomfort with occasional waves of pain . Pain is worse when she sits, and while getting in and out of her car. She has not tried doing anything for it to make it go away. She tells me that lying on her left side does bring her some relief if the pain. She tells me she does not drink alcohol, she tells me she found herself drinking a little bit too much so the beginning of 2024, she stopped drinking. She denies any history of liver issues, she denies any nausea vomiting or diarrhea. She tells me she has gained a little bit of weight recently. Records indicate she has had about a 20 lb weight gain since last June. She also had a TSH of greater than 100 last June but has not had the recheck lab done. Records indicate she is on 175 mcg daily. Physical Exam General: Cooperative, healthy appearing, comfortable, no acute distress and well developed Orientation: Patient oriented x3 Limitations: No limitations Head: Normal to inspection Ears: Hearing grossly normal bilaterally Nose: Normal External nose present Face and sinus: Normal facial exam Mouth: normal, moist oral mucosa Eyes: Appearance normal, both eyes and all related structures Neck: Normal visual inspection and Yes full ROM Respiratory: Normal respiratory effort and able to speak in complete sentences. GI: soft, palpable 2cm x 3cm lump in RUQ which is TTP Skin: no rashes or lesions noted Neuro: Patient oriented x3 Extremities: moving all extremities normally [facility] Medical History Graves disease Surgical History History of thyroidectomy Family History Mother Hypothyroidism (acquired) Father No problems noted. Paternal Grandmother Diabetes Social History (Updated 09/27/24 @ 14:48 by Akua Warner LPN) Housing: Apartment Alcohol intake: current Alcohol intake frequency: a few times a month Alcohol type: beer Patient Tobacco Use Status: Never used Tobacco e-Cigarette/Vaping Use: Never Used Second Hand Smoke Exposure: No Substance Use Type: Marijuana service: No Current occupational status: employed Cognitive needs: No Hearing needs: No Vision needs: No Review of Systems Const All systems reviewed & are unremarkable except as noted in HPI and below Physical Exam Vital Signs: Last Vital Signs Temp 98.0 F 06/11/25 10:49 Pulse 72 06/11/25 10:49 BP 104/60 06/11/25 10:49 Pulse Ox 99 06/11/25 10:49 Oxygen Delivery Method Room Air 06/11/25 10:49 BMI result Body Mass Index 32.8 Assessment & Plan Assessment & Plan (1) Abdominal or pelvic swelling, mass, or lump, right upper quadrant: Code(s): R19.01 - Right upper quadrant abdominal swelling, mass and lump Plan: Patient was informed and verbally consented to the use of an ambient scribe for clinic note documentation during this visit 1. Abdominal Mass - Immediate referral to the emergency department for imaging studies, including CT scan and/or ultrasound, to evaluate the mass. - Coordination with the emergency department to ensure timely assessment and management. - Called [facility] with [facility], spoke with Judi Simms PA-C 11:32AM. Coding Level of Care Code Est Pt Level 5 (08429) Diagnoses Abdominal or pelvic swelling, mass, or lump, right upper quadrant R19.01
--- OUTSIDE RECORDS SUMMARY | 2025-06-11 11:14 | XMS_ITS | Clinical Summary ---
Author Organization [facility] Address [address] [place] [id number] Phone Care Team Providers Care Clinical Interviewer Name Role Phone Unavailable Primary Care Provider Unavailabl e Immunizations Immunization Administration Dates Next Due DTaP 5 06/03/2005, 2,2001,2001, 1 H1N1 10/07/2009 Hep B, ped/adol 2001,2001,2001 Hib (PRP-T) 09/27/2002,2001,2001 ,2001 IPV 06/03/2005,09/27/2002,2001 ,2001 MMR 06/03/2005,04/03/2002 Pneumococcal Conjugate 2001,2001, Varicella 02/02/2008,04/03/2002 Family History Relation Name Status Comments Cousin Alive cousin ( 18): S davy /IN under age 55 Father Alive Father: Alive a nd well Maternal Grandfather Materna l grandfather: High BP heart problems Maternal Grandmother Materna l grandmother: High BP diabetic, Asthma Mother Alive Mother: Asthma, High BP Paternal Grandmother Paterna l grandmother: High BP, Heart prolblems Diab Sister 1 Alive Sister: Alive a nd well, lazy eye, Alive and well Sister 2 Alive Sister: Alive a nd well, lazy eye, Alive and well Social History Tobacco Use Types Packs/Day Years Used Date Smoking Tobacco: Never Assessed Comments Unknown Sex and Gender Information Value Date Recorded Sex Assigned at Not on file Legal Sex Female 4:27 PM EDT Gender Identity Not on file Sexual Orientation Not on file Plan of Treatment Health Maintenance Due Date Last Done Comments DTaP,Tdap,and Td Vaccines (6 - Tdap) 2012 06/03/2005, 09/27/2002, 2001, Additional history exists HPV Vaccines (1 - 3-dose series) 2016 COVID-19 Vaccine (2023- season) 2024 Influenza Vaccines (#1) 2025 Hepatitis B Vaccines Completed 2001, 2001, 2001 Pneumococcal Vaccine Aged Out 2001, 2001, 2001 No longer eligible based on patient's age to complete this topic HIB Vaccines Completed 09/27/2002, 08/30, 2001, Additional history exists IPV Vaccines Completed 06/03/2005, 08/31, 2001, Additional history exists MMR Vaccines Completed 06/03/2005, 04/03/2002 Varicella Vaccines Completed 02/02/2008, 04/03/2002 Hepatitis A Vaccines Aged Out No long er eligible based on patient's age to complete this topic Men B Vaccine Aged Out No longer elig ible based on patient's age to complete this topic Meningococcal Vaccine Aged Out No parvez jing eligible based on patient's age to complete this topic
== END 2025-06-11 11:40 | disposition home or self-care (01) ==
PROVIDERS: PCP Internal Medicine; Visit Provider Physician Assistant
DX: R19.01 Right upper quadrant abdominal swelling, mass and lump (principal)

== ENCOUNTER 2025-06-11 11:54 | Emergency (ER) | payer OTHER, SELFPAY ==
--- NOTE | ~2025-06-11 | CT_ITS ---
CLINICAL HISTORY: ruq mass, pain CT abdomen and pelvis with IV contrast. COMPARISON: None provided. FINDINGS: Partially visualized lung bases are unremarkable. No focal hepatic lesion. Normal gallbladder. Normal spleen. Normal pancreas. Normal adrenal glands. Symmetric renal enhancement. No hydronephrosis. Normal appendix. No bowel obstruction. Moderate colonic stool burden most pronounced within the ascending colon. No mesenteric or retroperitoneal lymphadenopathy. Normal abdominal aorta. Normal appearance of the urinary bladder. Retroverted uterus. No adnexal mass. Small fat containing umbilical hernia. No acute fracture or suspicious bone lesion. IMPRESSION: 1. No abdominal mass or lymphadenopathy identified. 2. Moderate colonic stool burden most pronounced within the ascending colon. No bowel obstruction. This document has been electronically signed by: Ariel Russell MD on 06/11/2025 20:59:26
[2025-06-11 12:17] VITALS: BP 128/86; PULSE 64; RESP 16; TEMP 36.3; O2SAT 98; BMI 30.2
--- NOTE | 2025-06-11 12:21 | ED.ABDPAIN ---
HPI - Abdominal Pain General Chief Complaint: Abdominal Pain Stated Complaint: lump in upper r abd sent in by walk in care Time Seen by Provider: 06/11/25 16:20 Source: patient Mode of arrival: ambulatory Limitations: no limitations History of Present Illness ED Provider: DR. Bran HPI narrative: A 25-year-old female came in for evaluation of right upper quadrant mass started for 5 months ago, patient feels the mass in her right upper quadrant now it is more painful, pain is intermittent comes and goes, no clear aggravating or relieving factor, no fever, chills, feels nauseous with the pain but no vomiting, no blood in the stool, eating with good appetite. Related Data Previous Rx's ?Medication ?Instructions ?Recorded levothyroxine 175 mcg tablet 175 mcg PO DAILY 90 days #90 tabs 10/14/24 Allergies Allergy/AdvReac Type Severity Reaction Status Date / Time No Known Allergies Allergy Verified 06/11/25 12:20 Review of Systems Review of Systems All other systems are reviewed and are negative Constitutional: Reports as per HPI and Reports no additional constitutional complaints Eyes: Reports as per HPI and Reports no additional eye complaints Reports system reviewed and no additional complaints, except as documented Cardiovascular: Reports as per HPI and Reports no additional cardiovascular complaints Respiratory: Reports as per HPI and Reports no additional respiratory complaints Gastrointestinal: Reports as per HPI and Reports no additional gastrointestinal complaints Genitourinary: Reports no additional female genitourinary complaints Musculoskeletal: Reports no additional musculoskeletal complaints Skin/Breast: Reports system reviewed and no additional complaints, except as docu Psychiatric: Reports no additional psychiatric complaints Endocrine: Reports no additional endocrine complaints Hematologic/Lymphatic: Reports no additional hematologic/lymphatic complaints Allergic/Immunologic: Reports no additional allergic/immunologic complaints Reports system reviewed and no additional complaints, except as documented and Reports Abnormal speech present [facility] Past Medical History Medical History Graves disease Surgical History History of thyroidectomy Family History Family History Mother Hypothyroidism (acquired) Father No problems noted. Paternal Grandmother Diabetes Social History Social History Housing: Apartment Alcohol intake: current Alcohol intake frequency: a few times a month Alcohol type: beer Patient Tobacco Use Status: Never used Tobacco e-Cigarette/Vaping Use: Never Used Second Hand Smoke Exposure: No Substance Use Type: Marijuana Advance Directives: No Advance Directives Information Provided: No Do you have a plan to hurt others: No Plan service: No Current occupational status: employed Cognitive needs: No Hearing needs: No Vision needs: No Physical Exam ED Vital Signs: Vital Signs - 24 hr 06/11/25 12:17 06/11/25 19:09 Temperature 97.4 F 97.8 F Pulse Rate 64 66 Respiratory Rate 16 18 Blood Pressure 128/86 126/78 Pulse Oximetry 98 98 Oxygen Delivery Method Room Air Room Air BMI result Body Mass Index 30.2 Vital signs have been reviewed and appear to be correct. Blood pressure elevated. Heart rate normal. Respiratory rate normal. Temperature normal. Oxygen saturation normal. Appearance: Alert. Oriented X3. No acute distress. Head: Normal external exam. Normocephalic. Atraumatic. No Tomas signs noted. No raccoon eyes noted Eyes: PERRLA. EOMI. Conjunctiva and sclera normal. Eyelids normal. ENT: TM's Normal. Pharynx normal. Uvula midline. Moist mucous membranes. No trismus noted. No drooling noted. No muffled voice noted. Neck: Normal inspection. Neck supple. FROM. No adenopathy. Thyroid Normal. No meningeal signs. No neck mass noted. CVS: Normal heart rate and rhythm. Heart sound normal. No murmurs noted. Pulses normal throughout. Respiratory: No respiratory distress. Painless inspiration. Breath sounds normal. No wheezes/rales/rhonchi noted. Chest nontender. No accessory muscle usage noted or decreased air movement noted. Abdomen: Soft, no subcutaneous mass, right upper quadrant tenderness, no rebound tenderness, no guarding. Bowel sounds normal in all 4 quadrants. No distention noted. No organomegaly noted. No visible injury noted. Back: No CVA tenderness. Full range of motion noted. Skin: Skin warm and dry. Normal skin color. Normal skin turgor. No rashes/lesions/lacerations noted. Extremities: No lower extremity edema. Extremities exhibit normal range of motion. Extremities nontender. Neuro: Oriented X 3. Cranial nerve exam: II-XII are grossly intact No motor deficit. No sensory deficit. Reflexes normal. Course Course Course Narrative: 06/11/25 1221 CHANDRA Hanson This is a Rapid Medical Examination (RME) performed by Camelia Alfonso PA-C in triage. Full HPI, ROS, assessment and treatment plan per primary provider in the Main ED. Hx: 25 yo F here from for concerns of growing mass to epigastric region x 3-4months. now becoming painful over the last few days. no OTC meds. assoc N/V. no diarrhea, constipation. no hx abd surgerieis. Plan: labs, UA, preg Reevaluation(s) Reevaluation #1: Unremarkable labs, CT shows no subcutaneous mass. Stable vital signs. Patient was instructed to apply heating pad and follow-up with PCP. Time: 21:01 Medical Decision Making Differential Diagnosis Differential Diagnoses: The differential diagnosis associated with the presentation includes (Gallbladder disease, subcutaneous mass, lipoma, abscess, hepatitis, electrolyte derangement, severe anemia.) Admission/Observation Consideration of admission/observation: Escalation of care including admission/observation considered Lab Data MDM Lab Attestation statement: I reviewed the patient's lab results. 06/11/25 14:22 06/11/25 14:22 Labs: Lab Results 06/11/25 Range/Units 14:22 WBC 7.1 (4.8-10.8) X10*3/uL RBC 4.36 (4.20-5.50) X10*6/uL Hgb 14.3 (12.0-16.0) g/dl Hct 41.2 (37.0-47.0) % MCV 94.5 (80.0-98.0) fL MCH 32.8 (27.0-33.0) pg MCHC 34.7 (31.0-35.0) g/dl RDW 13.0 (11.0-16.0) % Plt Count 243 (160-400) X10*3/uL MPV 9.5 (9.4-12.3) fL Immature Gran % (Auto) 0.3 (0.0-0.4) % Neut % (Auto) 52.8 (45-73) % Lymph % (Auto) 36.4 (20-40) % [place] % (Auto) 8.2 (2-11) % Eos % (Auto) 1.7 (0-4) % Baso % (Auto) 0.6 (0-2) % Lymph # (Auto) 2.6 (1.2-4.9) X10*3/uL [place] # (Auto) 0.6 (0.1-1.2) X10*3/uL Eos # (Auto) 0.1 (0.0-0.4) X10*3/uL Baso # (Auto) 0.0 (0.0-0.2) X10*3/uL Abs Immat Gran (auto) 0.02 (0.00-0.03) X10*3/uL Absolute Neuts (auto) 3.7 (2.0-8.3) x10*3/uL Absolute Nucleated RBC 0.000 (0.0-0.012) X10*3/uL Nucleated RBC % (auto) 0.0 (0.0-0.2) /100WBC Sodium 140 (135-145) mmol/L Potassium 4.1 (3.3-5.1) mmol/L Chloride 105 (96-108) mmol/L Carbon Dioxide 28 (22-29) mmol/L Anion Gap 11 L (12-20) BUN 13 (9-16) mg/dL Creatinine 0.96 (0.5-1.4) mg/dL Estim Creat Clear Calc 85.5 Estimated GFR > 60 Random Glucose 80 (60-115) mg/dL Calcium 9.6 (8.4-10.2) mg/dL Magnesium 2.3 (1.6-2.6) mg/dL Total Bilirubin 0.3 (0.0-1.0) mg/dL AST 40 H (5-31) U/L ALT 34 H (0-31) U/L Alkaline Phosphatase 61 (39-117) U/L Total Protein 8.0 (6.5-8.0) g/dL Albumin 5.0 (3.5-5.0) g/dL Lipase 31 (8-78) U/L Beta HCG, Quant < 2 mIU/mL Independent Interpretation I performed an independent interpretation of an: CT Scan (Abdomen pelvis:1. No abdominal mass or lymphadenopathy identified. 2. Moderate colonic stool burden most pronounced within the ascending colon. No bowel obstruction.) Medications Administered Discontinued Medications Generic Name Dose Route Start Last Admin Trade Name Rosa PRN Reason Stop Dose Admin Iohexol 100 ml 06/11/25 18:11 06/11/25 18:11 Iohexol 350 Mg/Ml 100 Ml Infus..Btl IV 06/11/25 18:12 85 ml ONCE ONE Administration Discharge Plan Discharge Clinical Impression: Abdominal pain Patient Disposition: Home, Self-Care Instructions: Abdominal Pain (ED) Additional Instructions: Take Tylenol if needed for pain. Apply heating pad to the area. Prescriptions: No Action levothyroxine 175 mcg tablet 175 mcg PO DAILY 90 Days Qty: 90 3RF Referrals: Tiffanie Sweet MD [Primary Care Provider, Internal Medicine] Print Language: Frisian
[2025-06-11 14:30] LABS: MANUAL DIFF FLAG NO
[2025-06-11 14:32] LABS: Hematocrit 41.2 % (37.0-47.0); Hemoglobin 14.3 g/dl (12.0-16.0); Imm Gran Abs Auto 0.02 X10*3/uL (0.00-0.03); Imm Gran Pct Auto 0.3 % (0.0-0.4); Lymphocytes Absolute Auto 2.6 X10*3/uL (1.2-4.9); Mean Corpuscular HGB Conc 34.7 g/dl (31.0-35.0); Mean Corpuscular Hemoglobin 32.8 pg (27.0-33.0); Mean Corpuscular Volume 94.5 fL (80.0-98.0); NRBC Abs Auto 0.000 X10*3/uL (0.0-0.012); NRBC Pct Auto 0.0 /100WBC (0.0-0.2); Platelet Count 243 X10*3/uL (160-400); Red Blood Count 4.36 X10*6/uL (4.20-5.50); White Blood Count 7.1 X10*3/uL (4.8-10.8)
[2025-06-11 14:54] LABS: Alanine Aminotransferase 34 U/L (0-31); Albumin Level 5.0 g/dL (3.5-5.0); Alkaline Phosphatase 61 U/L (39-117); Anion Gap 11 (12-20); Aspartate Amino Transferase 40 U/L (5-31); Blood Urea Nitrogen 13 mg/dL (9-16); Calcium 9.6 mg/dL (8.4-10.2); Carbon Dioxide 28 mmol/L (22-29); Chloride 105 mmol/L (96-108); Creatinine Clr Calc Pharmacy 85.5; Estimated Glomerular Filt Rate > 60; Lipase 31 U/L (8-78); Magnesium 2.3 mg/dL (1.6-2.6); Potassium 4.1 mmol/L (3.3-5.1); Sodium 140 mmol/L (135-145); Total Protein 8.0 g/dL (6.5-8.0)
[2025-06-11] MEDS: iohexoL 350 MG/ML 100 ML INFUS..BTL IV (18:11)
[2025-06-11 19:09] VITALS: BP 126/78; PULSE 66; RESP 18; TEMP 36.6; O2SAT 98
[2025-06-11 21:13] VITALS: BP 126/78; PULSE 66; RESP 18; TEMP 36.6; O2SAT 98
== END 2025-06-11 21:13 | disposition home or self-care (01) ==
PROVIDERS: Physician Assistant Medical; Emergency Provider Emergency Medicine; PCP Internal Medicine
DX: R10.11 Right upper quadrant pain (principal); R11.0 Nausea; R19.01 Right upper quadrant abdominal swelling, mass and lump
CPT/HCPCS: 36415; 74177; 80053; 83690; 83735; 84702; 85025; 99212; 99282; 99284; Q9967

== ENCOUNTER → 2025-06-11 16:39 | Outpatient (BNV) | payer SELFPAY | PROVIDERS: Emergency Provider Emergency Medicine; PCP Internal Medicine; Visit Provider Radiology Diagnostic Radiology | DX: R19.5 Other fecal abnormalities (principal) | CPT/HCPCS: 74177 ==

== ENCOUNTER → 2025-08-02 11:00 | Outpatient (BNVA) | payer SELFPAY | PROVIDERS: PCP Internal Medicine; Visit Provider Physician Assistant | DX: Z02.79 Encounter for issue of other medical certificate (principal) ==